=== PATIENT | male | born 1955 | race Caucasian/White ===

== ENCOUNTER 2017-05-02 10:07 | Emergency (ER) | payer MEDICARE, SELFPAY | END 2017-05-02 11:03 | disposition home or self-care (01) | PROVIDERS: Family Provider Emergency Medicine | DX: N41.0 Acute prostatitis (principal); N40.1 Benign prostatic hyperplasia with lower urinary tract symptoms; R35.0 Frequency of micturition; F17.210 Nicotine dependence, cigarettes, uncomplicated; Z86.74 Personal history of sudden cardiac arrest; I25.2 Old myocardial infarction; Z95.5 Presence of coronary angioplasty implant and graft; I82.4Z1 Acute embolism and thrombosis of unspecified deep veins of right distal lower extremity; Z79.01 Long term (current) use of anticoagulants; Z79.899 Other long term (current) drug therapy; Z88.5 Allergy status to narcotic agent; Z88.8 Allergy status to other drugs, medicaments and biological substances; I25.10 Atherosclerotic heart disease of native coronary artery without angina pectoris; I10 Essential (primary) hypertension; E11.9 Type 2 diabetes mellitus without complications | CPT/HCPCS: 81003; 99201 ==

== ENCOUNTER → 2017-05-26 10:00 | Outpatient (CLI) | payer MEDICARE, MEDICAID, SELFPAY ==
--- NOTE | 2017-05-26 10:22 | CT_ITS ---
CT angio abdomen, CLINICAL INDICATION: ITS.REASON: ANEURYSM OF INFRARENAL ABD AORTA ORDERING PHYSICIAN: Jose Nassar MD PATIENT AGE: 61 years COMPARISON: None TECHNIQUE: Axial images obtained with sagittal and coronal reformats. PROCEDURE: Oral Contrast: None IV Contrast: 100 mL [id number]. FINDINGS: ANGIOGRAPHIC FINDINGS: There is diffuse atheromatous changes involving the abdominal aorta and its branch vessels. There is fusiform dilatation of the infrarenal abdominal aorta beginning just below the level the renal arteries and extending to just above the aortic bifurcation. The aorta measures up to 4.3 x 4.3 cm with a moderate amount of intramural thrombus. Previously abdominal aorta measured up to 4 cm AP and 4 cm transverse. Common iliac arteries are not dilated. There are diffuse atheromatous changes of the iliacs with 50% stenosis of the proximal aspect of both common iliacs. No significant renal artery stenosis. Plaque is present at the ostium of the celiac artery without significant stenosis. The SMA is unremarkable. The NATASHA is patent. No evidence of intracranial hemorrhage. Non angiographic findings: There is a small amount of perihepatic fluid. Small amount fluid present in the left paracolic gutter and right paracolic gutter. Gallbladder is distended measuring up to 13 cm in length and 4 cm in width. The common bile duct is prominent measuring up to 14 mm. There is fatty infiltration with atrophy of the pancreas. Multiple surgical clips are present in the epigastric region. There are bilateral renal cysts. Unremarkable adrenal glands. Normal spleen. Postsurgical changes of the intra-abdominal wall. No intestinal obstruction or free air. There is a small amount fluid in the pelvis. There is diverticulosis of the sigmoid colon. No evidence of diverticulitis. Chronic wedge compression changes involving T12 and L1 not significant change from 05/21/2016. IMPRESSION: 1. Fusiform infrarenal abdominal aortic aneurysm 4.3 x 4.3 cm slightly increased in size compared to the previous exam. There is a moderate amount of intramural thrombus. 2. Distended gallbladder and dilated common bile duct. Common bile duct measures up to 13 mm. This has somewhat progressed compared to the previous exam previously measuring 11 mm. There is a small amount of ascites.
[2017-05-26 10:33] LABS: Blood Urea Nitrogen 4 mg/dL (7-18); Creatinine,Serum 0.98 mg/dL (0.70-1.30); Estimated Glomerular Filt Rate 77 ml/min (>60); GFR (African American) 93 ML/MIN (>60)
== END ==
PROVIDERS: Family Provider Emergency Medicine; PCP Emergency Medicine; Visit Provider Emergency Medicine
DX: I71.4 Abdominal aortic aneurysm, without rupture (principal)
CPT/HCPCS: 36415; 74175; 82565; 84520; Q9967

== ENCOUNTER 2017-05-30 10:56 | Emergency (ER) | payer MEDICARE, SELFPAY ==
[2017-05-30 11:20] VITALS: BP 98/58; PULSE 114; RESP 18; TEMP 36.7; O2SAT 98; BMI 22.8
--- NOTE | 2017-05-30 11:37 | HMH.EDUTC ---
[facility] Disposition Clinical Impression: Prostatitis Qualifiers: Prostatitis type: other Qualified Code(s): N41.8 - Other inflammatory diseases of prostate Disposition: Home, Self-Care Condition on Discharge: Good Instructions: DI for Acute Prostatitis Additional Instructions: Start antibiotics and flomax again since that helped last time Keep follow up with urology on 06/06/17 and be sure he knows about the apr and May visits to [facility] Return immediately for new or worsening symptoms Prescriptions: Ciprofloxacin HCl [Ciprofloxacin 500mg Tab] 500 mg PO BID #42 tab Sulfamethoxazole/Trimethoprim [Bactrim DS tablet] 1 each PO BID #42 tablet Tamsulosin HCl [Flomax 0.4mg capsule] 0.4 mg PO DIRECTED #30 cap.er.24h Referrals: Sandor Grier MD [Physician] - (On 06/06/17 as already scheduled) Jose Nassar MD [Primary Care Provider] - (For new or worsening symptoms) Time of Disposition: 12:52 Medical Decision Making Vital Signs: 05/30/17 11:20 Temperature 98.1 F Temperature Source Oral Pulse Rate [Right Brachial] 114 H Respiratory Rate 18 Blood Pressure [Right Arm] 98/58 Blood Pressure Mean [Right Arm] 71 Blood Pressure Source [Right Arm] Automatic Cuff Blood Pressure Position [Right Arm] Sitting 02 Sat by Pulse Oximetry 98 Oxygen Delivery Method Room Air - Lab Data Lab results reviewed: Yes: I reviewed the patient's lab results. Lab Results 05/30/17 11:42: WBC 13.7 H, RBC 4.28 L, Hgb 13.6 L, Hct 43.7, MCV 102.2 H, MCH 31.9 H, MCHC 31.2 L, RDW 16.3, Plt Count 295, MPV 7.7, Neut % (Auto) 78.9, Lymph % (Auto) 11.5, [place] % (Auto) 5.4, Eos % (Auto) 3.1, Baso % (Auto) 1.1, Neut # (Auto) 10.9 H, Lymph # (Auto) 1.6, [place] # (Auto) 0.7, Eos # (Auto) 0.4, Baso # (Auto) 0.2 05/30/17 11:42: Sodium 136, Potassium 5.0, Chloride 104, Carbon Dioxide 26, Anion Gap 11.0, BUN 5 L, Creatinine 0.83, Estimated Creat Clear 73, Estimated GFR 94, Est GFR ( Amer) 113, Glucose 113 H, Calcium 8.4 L, Total Bilirubin 0.8, AST 31, ALT 15, Alkaline Phosphatase 107, Total Protein 6.4, Albumin 2.2 L, Globulin 4.2 H, Albumin/Globulin Ratio 0.5 L 05/30/17 11:55: Urine Color Dark yellow, Urine Appearance Clear, Urine pH 6.0, Ur Specific Kirk 1.020, Urine Protein Negative, Urine Glucose (UA) Negative, Urine Ketones Negative, Urine Blood Negative, Urine Nitrate Negative, Urine Bilirubin Negative, Urine Urobilinogen 0.2, Ur Leukocyte Esterase Negative Result diagrams: 05/30/17 11:42 05/30/17 11:42 - Lyndon Inquiry Pt receiving controlled substance: No [facility] HPI - General Stated complaint: UNABLE TO VOID Time Seen by Provider: 05/30/17 11:30 Mode of Arrival: Ambulatory Source of Information: Patient Limitations: No Limitations Description of Symptoms (Recalled from Triage Doc. by RN): c/o frequent urination and pain while urinating. pt states this has been going on for approx 4 weeks. HEENT Symptoms (Recalled from RN notes): No Resp Symptoms (Recalled from RN notes): No Skin Symptoms (Recalled from RN notes): No MS Symptoms (Recalled from RN notes): No Functional Status (Recalled from RN notes): n/a - History of Present Illness Provider Complaint: c/o dysuria and urinary hesitancy again. Was seen for same symptoms one month ago. PCP is Dr. Nassar but was seen by his PA, Samina, here in [facility] one month ago for same symptoms. Dx prostatitis. Rx Cipro 500mg BID #42, Bactrim BID #42, Flomax 0.4 qHS #[address] Grier. Symptoms much improved on medication but since running out around one week ago, they have gotten worse again. Appt w/ urology in one week on 06/06. Hx of prostate problems . Used to take proscar until previous PCP, Dr. Cervantes, less then one year ago. Elevated PSA in 2012. Pt declines prostate exam today. Doesn't feel like my prostate. That isn't throbbing. Denies fever. - Related Data Previous Rx's Medication Instructions Recorded Ciprofloxacin HCl [Ciprofloxacin 500 mg PO BID #42 tab 05/30/17 500m
[2017-05-30 11:49] LABS: Basophils # 0.2 K/mm3 (0-0.2); Basophils % 1.1 % (0.1-2.0); Eosinophils # 0.4 K/mm3 (0.0-0.4); Eosinophils % 3.1 % (0.1-12.0); Hematocrit 43.7 % (42.0-52.0); Hemoglobin 13.6 g/dL (14.1-18.0); Lymphocytes # 1.6 K/mm3 (0.7-4.5); Lymphocytes % 11.5 K/mm3 (10-50); Mean Corpuscular HGB Conc 31.2 g/dL (31.8-35.4); Mean Corpuscular Hemoglobin 31.9 pg (27.0-31.2); Mean Corpuscular Volume 102.2 fl (80-94); Mean Platelet Volume 7.7 fl (7.4-10.4); Monocytes # 0.7 K/mm3 (0.1-1.0); Monocytes % 5.4 % (1.7-9.3); Neutrophils # 10.9 K/mm3 (1.8-7.8); Neutrophils % 78.9 % (37.0-80.0); Platelet Count 295 K/mm3 (142-424); Red Blood Count 4.28 M/mm3 (4.60-6.20); Red Cell Distribution Width 16.3 % (11.5-17.5); White Blood Count 13.7 K/mm3 (4.8-10.8)
--- NOTE | 2017-05-30 11:54 | PC.NURSE ---
Bladder scan performed. 191ml remaining immediately following urination of 45mL.
[2017-05-30 11:59] LABS: Apearance,Urine Clear (Clear); Blood, Urine Negative (Negative); Color,Urine Dark Yellow (Yellow); Glucose,Urine (UA) Negative (Negative); Ketones,Urine Negative (Negative); Protein,Urine Negative (Negative)
[2017-05-30 12:00] LABS: Bilirubin,Urine Negative (Negative); UTC Leukocyte Esterase,Urine Negative (Negative); UTC Nitrate,Urine Negative (Negative); Urobilinogen,Urine 0.2 EU/dl (0.2)
[2017-05-30 12:06] LABS: Alanine Aminotransferase 15 U/L (12-78); Albumin Level 2.2 gm/dL (3.4-5.0); Albumin/Globulin Ratio 0.5 (1.1-1.8); Alkaline Phosphatase 107 U/L (46-116); Aspartate Amino Transferase 31 U/L (15-37); Bilirubin,Total 0.8 mg/dL (0.2-1.0); Blood Urea Nitrogen 5 mg/dL (7-18); Calcium 8.4 mg/dL (8.5-10.1); Carbon Dioxide 26 mmol/L (21.0-32.0); Chloride 104 mmol/L (98-107); Creatinine Clearance Estimated 73 mL/min (0-300); Creatinine,Serum 0.83 mg/dL (0.70-1.30); Estimated Glomerular Filt Rate 94 ml/min (>60); GFR (African American) 113 ML/MIN (>60); Globulin 4.2 gm/dl (1.3-3.2); Glucose 113 mg/dL (74-106); Sodium 136 mmol/L (136-145); Total Protein,Serum 6.4 gm/dL (6.4-8.2)
[2017-05-30 13:02] VITALS: BP 98/58; PULSE 104; RESP 18; TEMP 36.7; O2SAT 96
== END 2017-05-30 13:08 | disposition home or self-care (01) ==
PROVIDERS: Emergency Provider Nurse Practitioner Family; Family Provider Emergency Medicine; PCP Emergency Medicine
DX: N41.9 Inflammatory disease of prostate, unspecified (principal); I25.10 Atherosclerotic heart disease of native coronary artery without angina pectoris; Z95.5 Presence of coronary angioplasty implant and graft; I25.2 Old myocardial infarction; F17.210 Nicotine dependence, cigarettes, uncomplicated
CPT/HCPCS: 36415; 80053; 81003; 85025; 99202

== ENCOUNTER → 2017-06-18 10:29 | Outpatient (CLI) | payer MEDICARE, MEDICAID, SELFPAY ==
--- NOTE | 2017-06-18 10:32 | US_ITS ---
US gallbladder HISTORY: Distended gallbladder seen on recent CT scan with dilated common bile duct ITS.REASON: Gallbladder distended and dilated common bile duct ORDERING PHYSICIAN: Jose Nassar MD PATIENT AGE: 61 years COMPARISON: None FINDINGS: PANCREAS: Unremarkable. No obvious mass or abnormal fluid collection. No ductal dilatation LIVER: No focal liver lesions demonstrated. Homogeneous echogenicity. No intrahepatic biliary ductal dilatation evident RIGHT KIDNEY: There is a 3 cm right renal cyst. No hydronephrosis. GALLBLADDER: Gallbladder is mildly distended. No stones are evident. Common bile duct measured by ultrasound is unremarkable at 3 mm. IMPRESSION: Mildly distended gallbladder and small right renal cyst otherwise negative right upper quadrant ultrasound
== END ==
PROVIDERS: Family Provider Emergency Medicine; PCP Emergency Medicine; Visit Provider Emergency Medicine
DX: K82.9 Disease of gallbladder, unspecified (principal)
CPT/HCPCS: 76705

== ENCOUNTER 2017-07-01 10:48 | Inpatient (IN) | payer MEDICARE, MEDICAID, SELFPAY ==
[2017-07-01 10:49] VITALS: BMI 21.9
[2017-07-01 10:50] VITALS: BP 102/60; PULSE 106; RESP 18; TEMP 36.8; O2SAT 95; BMI 22.5
--- NOTE | 2017-07-01 11:10 | XR_ITS ---
XR chest portable HISTORY: ITS.REASON: SHORTNESS OF AIR ORDERING PHYSICIAN: Jose Nassar MD PATIENT AGE: 61 years COMPARISON: 04/14/2017 FINDINGS: There is been interval development of diffuse pneumonia in the right lower lobe. Pneumonia is also present in the left lower lobe not quite as opacified as on the right side. Left hemidiaphragm is elevated. There is mild cardiomegaly without failure. Old left clavicular fracture with a bone plate. IMPRESSION: Bilateral pneumonia most extensive in the right lower lobe
--- NOTE | 2017-07-01 11:26 | HMH.EDGENADL ---
ED Disposition Clinical Impression: Acute respiratory failure with hypoxia CAP (community acquired pneumonia) Qualifiers: Laterality: unspecified laterality Qualified Code(s): J18.9 - Pneumonia, unspecified organism Disposition: Still a Patient Condition on Discharge: Fair Referrals: Jose Nassar MD [Primary Care Provider] - - Critical Care Critical Care Time: Yes Attestation: On , the high probability of a clinically significant, sudden or life threatening deterioration of the following system(s) required my full and direct attention, intervention and personal management. The time I documented below is in addition to time spent performing reported procedures but includes the following listed in this critical care notation. Total Critical Care Time: 42 Vital system(s) involved:: Respiratory Failure My critical care processes included: Assessment & monitoring of V/S, Initial and Re-exams, Data Review/Interpretation, Coordinating Care, Medication Orders and management, Documentation Medical Decision Making Vital Signs: 07/01/17 10:50 Temperature 98.3 F Temperature Source Oral Pulse Rate [Right Radial] 106 H Respiratory Rate 18 Blood Pressure [Right Arm] 102/60 Blood Pressure Mean [Right Arm] 74 Blood Pressure Source [Right Arm] Automatic Cuff Blood Pressure Position [Right Arm] Sitting 02 Sat by Pulse Oximetry 95 Oxygen Delivery Method Room Air - Lab Data Lab Results 07/01/17 11:15: WBC 25.2 H*, RBC 3.99 L, Hgb 12.6 L, Hct 38.4 L, MCV 96.3 H, MCH 31.6 H, MCHC 32.8, RDW 16.1, Plt Count 116 L, MPV 9.0, Neut % (Auto) 90.5 H, Lymph % (Auto) 6.4 L, [place] % (Auto) 1.6 L, Eos % (Auto) 1.2, Baso % (Auto) 0.4, Neut # (Auto) 22.8 H, Lymph # (Auto) 1.6, [place] # (Auto) 0.4, Eos # (Auto) 0.3, Baso # (Auto) 0.1, Total Counted 100, Neutrophils % (Manual) 86 H, Lymphocytes % (Manual) 9 L, Monocytes % (Manual) 5, Platelet Estimate Normal, RBC Morphology Normal 07/01/17 11:15: Sodium 136, Potassium 3.7, Chloride 100, Carbon Dioxide 28, Anion Gap 11.7, BUN 14, Creatinine 0.95, Estimated Creat Clear 72, Estimated GFR 80, Est GFR ( Amer) 97, Glucose 100, Calcium 8.2 L, Total Bilirubin 1.0, AST 282 H, ALT 39, Alkaline Phosphatase 126 H, Total Creatine Kinase 5206 H*, CK-MB (CK-2) 3.6, CK-MB (CK-2) Rel Index 0.1, Troponin I 0.05, Total Protein 6.2 L, Albumin 2.1 L, Globulin 4.1 H, Albumin/Globulin Ratio 0.5 L 07/01/17 11:15: B-Natriuretic Peptide 344 H 07/01/17 11:15: Lactic Acid 2.3 H 07/01/17 11:15: Influenza Type A Ag Negative, Influenza Type B Ag Negative 07/01/17 12:14: Specimen Source Right radial, O2 % 31/2 nc, ABG pH 7.49 H, ABG pCO2 33.5 L, ABG pO2 65.5 L, ABG HCO3 25.0, ABG Total CO2 26.0, ABG O2 Saturation 94, ABG Base Excess 1.6, Cruz Test Acceptable Result diagrams: 07/01/17 11:15 07/01/17 11:15 Orders (Tests/Meds): ED MEDICATIONS Generic Name Dose Route Start Last Admin Trade Name Freq PRN Reason Stop Dose Admin Ceftriaxone Sodium 1 gm/ 50 mls @ 100 mls/hr 07/01/17 12:41 07/01/17 13:01 Sodium Chloride IV 07/01/17 13:10 100 mls/hr ONCE ONE Administration Discontinued Medications Generic Name Dose Route Start Last Admin Trade Name Freq PRN Reason Stop Dose Admin Sodium Chloride 1,000 mls @ 999 mls/hr 07/01/17 11:45 07/01/17 11:43 Sod Chlor 0.9% 1000ml Bag IV 07/01/17 12:45 999 mls/hr .Q1H1M ЕЛЕНА Administration Azithromycin 500 mg/ Sodium 250 mls @ 250 mls/hr 07/01/17 12:41 Chloride IV 07/01/17 12:42 ONCE ONE Protocol ORDERS Category Date Time Status XR chest portable Stat Exams 07/01/17 11:10 Taken Blood Culture Stat Micro 07/01/17 11:15 Received - Radiology Data #1 Image(s): Chest X-ray interpreted by Paul Guillermo M.D.: Bibasilar infiltrates, right greater than left. Chronic elevation of left diaphragm. - ECG Data Tracing #1 EKG interpreted by Paul Guillermo MD: Rhythm: sinus Rate: 99 [place]: normal Ectopy:
[2017-07-01 11:27] LABS: Basophils # 0.1 K/mm3 (0-0.2); Basophils % 0.4 % (0.1-2.0); Eosinophils # 0.3 K/mm3 (0.0-0.4); Eosinophils % 1.2 % (0.1-12.0); Hematocrit 38.4 % (42.0-52.0); Hemoglobin 12.6 g/dL (14.1-18.0); Lymphocytes # 1.6 K/mm3 (0.7-4.5); Lymphocytes % 6.4 K/mm3 (10-50); Mean Corpuscular HGB Conc 32.8 g/dL (31.8-35.4); Mean Corpuscular Hemoglobin 31.6 pg (27.0-31.2); Mean Corpuscular Volume 96.3 fl (80-94); Monocytes # 0.4 K/mm3 (0.1-1.0); Monocytes % 1.6 % (1.7-9.3); Neutrophils # 22.8 K/mm3 (1.8-7.8); Neutrophils % 90.5 % (37.0-80.0); Platelet Count 116 K/mm3 (142-424); Red Blood Count 3.99 M/mm3 (4.60-6.20); Red Cell Distribution Width 16.1 % (11.5-17.5); White Blood Count 25.2 K/mm3 (4.8-10.8)
[2017-07-01 11:32] LABS: MANUAL DIFFERENTIAL MANUAL DIFFERENTIAL (MANUAL DIFF)
[2017-07-01 11:44] LABS: Lactic Acid 2.3 mmol/L (0.4-2.0)
[2017-07-01 11:52] LABS: Alanine Aminotransferase 39 U/L (12-78); Albumin Level 2.1 gm/dL (3.4-5.0); Albumin/Globulin Ratio 0.5 (1.1-1.8); Alkaline Phosphatase 126 U/L (46-116); Blood Urea Nitrogen 14 mg/dL (7-18); Calcium 8.2 mg/dL (8.5-10.1); Carbon Dioxide 28 mmol/L (21.0-32.0); Chloride 100 mmol/L (98-107); Creatine Kinase MB 3.6 mg/ml (0.0-3.6); Creatinine Clearance Estimated 72 mL/min (0-300); Creatinine,Serum 0.95 mg/dL (0.70-1.30); Estimated Glomerular Filt Rate 80 ml/min (>60); GFR (African American) 97 ML/MIN (>60); Globulin 4.1 gm/dl (1.3-3.2); Glucose 100 mg/dL (74-106); Sodium 136 mmol/L (136-145); Total Protein,Serum 6.2 gm/dL (6.4-8.2); Troponin I 0.05 ng/ml (0.00-0.06)
[2017-07-01 12:03] LABS: Anion Gap 11.7 mEq/L (5-15)
[2017-07-01 12:09] LABS: ABG Base Excess 1.6 mmol/L (-2.4-2.3); ABG Oxygen Saturation 94 % (90-100); ABG PCO2 33.5 mmhg (35.0-45.0); ABG PH 7.49 mmol/L (7.35-7.45); ABG PO2 65.5 mmhg (80-100)
[2017-07-01 12:12] LABS: CKMB Relative Index 0.1 U/L (0-4.0); Creatine Kinase 5206 U/L (39-308); Potassium 3.7 mmoL/L (3.5-5.1)
[2017-07-01 12:14] LABS: Allen's Test Acceptable; Source Right Radial
[2017-07-01 12:15] LABS: Aspartate Amino Transferase 282 U/L (15-37); Lymphocytes % 9 % (10-50); Monocytes % 5 % (2-9); Neutrophils % 86 % (42-76); Platelet Estimate Normal; RBC Morphology Normal; Total Cells Counted 100
[2017-07-01 13:43] VITALS: BP 140/68; PULSE 85; RESP 18; TEMP 36.8; O2SAT 99
[2017-07-01 14:38] VITALS: BP 105/55; PULSE 90; RESP 20; TEMP 36.9; O2SAT 96; BMI 20.9
[2017-07-01 15:21] LABS: Reflex Lactic Add Lactic Reflex
[2017-07-01 15:51] VITALS: BP 112/63; PULSE 91; RESP 20; TEMP 36.8; O2SAT 93
--- NOTE | 2017-07-01 17:05 | SW/DCPLANNER ---
Engaged in conversation this evening regarding patients mental status. Patient stated that for the past week he has became very confused at home. Patient openly admitted that his last time drinking alcohol was during the superbowl and stated he consumed two bottles of wine. Patient has also stated that he has not been taking his medication like he is suppose to...sometimes he forgets and sometimes the pills are too small for him to see. I had a conversation with patient about purchasing a daily medicine organizer. I asked patient if he had any suicidal thoughts this evening and he stated that he did not that he has just been confused this week. I will continue to follow up with this patient daily during his stay.
[2017-07-01 19:16] VITALS: PULSE 95; PULSE 96
[2017-07-01 20:00] VITALS: BP 107/60; PULSE 100; RESP 24; TEMP 37.6; O2SAT 91
[2017-07-02] VITALS (9 sets, daily range): BP systolic 96–122; BP diastolic 55–62; PULSE 94–119; RESP 18–35; TEMP 36.7–38.1; O2SAT 90–96
--- NOTE | 2017-07-02 05:21 | PC.NURSE ---
Pt can be difficult to care for in understanding exactly what his needs are. Speech is somewhat rambling at times with several explanations given concerning POC - ABX - Breathing Tx and ongoing care. Pt voiced he can not understand why he is so short of air and does become anxious when talking about his soa. Encouraged pt on several occasions with relaxation techniques and diversion to keep pt breathing through his nose to receive benefits of oxygen and slowing breathing down to prevent hyperventilation. Pt voiced he hasn't been eating well and has not ask for anything to eat this shift. Discussed drinking to keep secretions thinned and pt has been coughing and spitting in emesis basin. Pt requested a catheter earlier as he felt he was getting too short of air trying to use the urinal. Discussed not having an order for a catheter and the desire for him to use the urinal versus insertion of a catheter and the risk for possible infection. He has been using the urinal successfully following that conversation. Pt's call light remains w/i pt's reach and he does ring out when he needs help with pt remaining safe this shift.
--- NOTE | 2017-07-02 05:56 | PC.NURSE ---
In to talk with patient concerning upcoming doctor's round. Discussed earlier with pt about his anxiety. Pt voiced he had been depressed lately, when questioned why pt voiced he has always been that way just been pushing through until he can't any more. No s/s of self harm and patient discussed he needed something for his nerves. Voiced he hasn't been eating well and haven't eaten much of nothing lately, weighed 180 pounds about a year ago and now weighs about 140. Voiced he stays about half sick at my stomach all the time. Encouraged pt to talk with MD or whoever is rounding this am about his anxiety and decreased appetite. I will pass along in shift report to oncoming nurse as well. Pt resting in bed at this time watching the Maestro on TV, appears to be more relaxed than in earlier shift. Patient not found sleeping on any checks this shift. He has a twitch about his lips constantly and appears to get frustrated during discussions concerning his health as he will rub the top of his head back and forth. Will continue monitoring.
[2017-07-02 06:47] LABS: Basophils % 0.1 % (0.1-2.0); Eosinophils # 0.1 K/mm3 (0.0-0.4); Eosinophils % 0.6 % (0.1-12.0); Lymphocytes # 1.1 K/mm3 (0.7-4.5); Mean Corpuscular HGB Conc 33.6 g/dL (31.8-35.4); Mean Corpuscular Hemoglobin 31.8 pg (27.0-31.2); Mean Corpuscular Volume 94.6 fl (80-94); Mean Platelet Volume 8.4 fl (7.4-10.4); Monocytes # 0.3 K/mm3 (0.1-1.0); Monocytes % 1.9 % (1.7-9.3); Neutrophils # 16.5 K/mm3 (1.8-7.8); Neutrophils % 91.5 % (37.0-80.0); Platelet Count 96 K/mm3 (142-424); Red Blood Count 3.09 M/mm3 (4.60-6.20); Red Cell Distribution Width 16.4 % (11.5-17.5); White Blood Count 18.1 K/mm3 (4.8-10.8)
[2017-07-02 06:59] LABS: Anion Gap 8.7 mEq/L (5-15); Blood Urea Nitrogen 11 mg/dL (7-18); Carbon Dioxide 26 mmol/L (21.0-32.0); Chloride 102 mmol/L (98-107); Creatinine Clearance Estimated 67 mL/min (0-300); Creatinine,Serum 0.58 mg/dL (0.70-1.30); Estimated Glomerular Filt Rate 142 ml/min (>60); GFR (African American) 171 ML/MIN (>60); Glucose 94 mg/dL (74-106); Potassium 3.7 mmoL/L (3.5-5.1); Sodium 133 mmol/L (136-145)
[2017-07-02 07:01] LABS: Creatine Kinase 1090 U/L (39-308)
[2017-07-02 07:06] LABS: Hemoglobin 9.8 g/dL (14.1-18.0)
[2017-07-02 07:07] LABS: MANUAL DIFFERENTIAL MANUAL DIFFERENTIAL (MANUAL DIFF)
--- NOTE | 2017-07-02 08:00 | HMH.PHAVTE ---
[facility] Pharmacy VTE Monitoring - Patient Demographics Admission date: 07/01/17 Report Date: 07/02/17 Time: 08:00 Allergies/Adverse Reactions: Patient Allergies duloxetine [From CYMBALTA] Allergy (Intermediate, Verified 07/01/17 10:59) MOOD CHANGES phenytoin [From DILANTIN] Allergy (Intermediate, Verified 07/01/17 10:59) I-RASH methadone [METHADONE] Allergy (Unknown, Verified 07/01/17 10:59) Height: 1.73 m Weight: 62.6 kg Patient Problems: Current Active Problems CAP (community acquired pneumonia) (Acute) Acute respiratory failure with hypoxia (Acute) - VTE Risk Labs: VTE Related Lab Results Hgb 9.8 g/dL (14.1-18.0) L D 07/02/17 06:10 Hct 29.0 % (42.0-52.0) L 07/02/17 06:10 Plt Count 96 K/mm3 (142-424) L 07/02/17 06:10 BUN 11 mg/dL (7-18) 07/02/17 06:10 Creatinine 0.58 mg/dL (0.70-1.30) L D 07/02/17 06:10 Estimated Creat Clear 67 mL/min (0-300) 07/02/17 06:10 Was VTE Risk Assessment Performed: Yes VTE Score: 3 VTE Risk Level: Low Risk - Prophylaxis VTE Prophylaxis Ordered?: Yes Types of VTE Prophylaxis: TEDS Thigh High, Pharmacological Location of Applied Device: Bilateral Lower Extremeties Pharmacologic Type: Other (XARELTO) - VTE Diagnosis Confirmed Treatment or plan recommended: Continue Current Treatment
--- NOTE | 2017-07-02 09:27 | HMH.HP ---
*Admission Date: 07/01/17 *Chief complaint: sob *History of present illness: 61 yr old male presents for sob and and weakness for 7 days. Pt states confusion has increased over the last 4 days. has only drank 2 beers last week. Admitted for low o2 sat, pneumonia. discussed with pt the possiablity of rehab after dc. [facility] History I have reviewed the patient's past medical history: Yes Medical History: Reports:: Migraine, Pulmonary Embolism, Seizures Denies:: Cancer, Diabetes Mellitus Type 1, Diabetes Mellitus Type 2, Hypertension, Internal Pacemaker, MRSA Other Medical History: Reports: Chemotherapy Laterality Cases: Left: Total Knee Replacement Other Surgeries: Yes: Other. No: Pacemaker Amputation: No Fractures: No - *Social History Educational Level: Completed High School Smoking Status: Current every day smoker Tobacco Type: cigarettes # Packs/Day (cigarettes): 1 Alcohol Intake: current Alcohol Intake Frequency:: a few times a week Occupational Status: disabled Housing: house Household Members: none - Psychiatric History Expresses thoughts of harming self/others: Vague Suicide Plan Description: Vague *Family Hx:: Kidney Disease, Diabetes, Heart Attack Review of Systems - Review of Systems Review of systems:: unable to obtain - Constitutional Reports fatigue - Eyes Denies change in vision - ENT Denies change in voice - *Cardiovascular Reports shortness of breath, Reports shortness of breath when lying down - *Respiratory Reports change in phlegm color, Reports chest congestion, Reports cough, Reports shortness of breath, Reports shortness of breath with activity - *Gastrointestinal Denies constipation - *Genitourinary Denies difficulty urinating - *Musculoskeletal Reports body aches - Integumentary/Breasts Denies rash - *Neurologic Denies localized weakness - Psychiatric Denies irritability - Endocrine Denies increased thirst - Hematologic/Lymphatic Denies enlarged lymph nodes - Allergic/Immunologic Denies tongue swelling Meds Home Medications Medication Instructions Recorded Confirmed Type oxycodone 10 mg tablet 10 mg PO Q6H tab 06/03/17 07/01/17 History Sulfamethoxazole/Trimethoprim 1 each PO BID 07/01/17 07/01/17 History [Bactrim DS tablet] Tamsulosin HCl [Flomax 0.4mg 0.4 mg PO DAILY 07/01/17 07/02/17 History capsule] Cyclobenzaprine HCl 10 mg PO TID 07/02/17 07/02/17 History [Cyclobenzaprine 10mg Tab] Methocarbamol [Methocarbamol 750mg 750 mg PO TID 07/02/17 07/02/17 History Tab] Pregabalin [Pregabalin 50mg 50 mg PO BID 07/02/17 07/02/17 History Capsule] Rivaroxaban [Xarelto 15mg tablet] 15 mg PO DAILY 07/02/17 07/02/17 History Allergies Allergy/AdvReac Type Severity Reaction Status Date / Time duloxetine [From CYMBALTA] Allergy Intermediate MOOD Verified 07/01/17 10:59 CHANGES phenytoin [From DILANTIN] Allergy Intermediate I-RASH Verified 07/01/17 10:59 methadone [METHADONE] Allergy Unknown Verified 07/01/17 10:59 Exam Vital signs and Labs for Last 24 Hours: Temp Pulse Resp BP Pulse Ox 98.5 F 102 H 20 96/58 93 L 07/02/17 07:33 07/02/17 07:33 07/02/17 07:33 07/02/17 07:33 07/02/17 07:33 Laboratory Results - last 24 hr 07/01/17 15:30: Lactic Acid Fup @ 4Hr 2.0 07/02/17 06:10: Total Creatine Kinase 1090 H* D 07/02/17 06:10: WBC 18.1 H D, RBC 3.09 L, Hgb 9.8 L D, Hct 29.0 L, MCV 94.6 H, MCH 31.8 H, MCHC 33.6, RDW 16.4, Plt Count 96 L, MPV 8.4, Neut % (Auto) 91.5 H, Lymph % (Auto) 6.0 L, [place] % (Auto) 1.9, Eos % (Auto) 0.6, Baso % (Auto) 0.1, Neut # (Auto) 16.5 H, Lymph # (Auto) 1.1, [place] # (Auto) 0.3, Eos # (Auto) 0.1, Baso # (Auto) 0.0 07/02/17 06:10: Sodium 133 L, Potassium 3.7, Chloride 102, Carbon Dioxide 26, Anion Gap 8.7, BUN 11, Creatinine 0.58 L D, Estimated Creat Clear 67, Estimated GFR 142, Est GFR ( Amer) 171 D, Glucose 94 I & O for Last 24 hours: Intake & Output 06/29/17 06/30/17
[2017-07-02 11:45] LABS: Lymphocytes % 8 % (10-50); Neutrophils % 92 % (42-76); Platelet Estimate Marked Decrease; RBC Morphology Normal; Total Cells Counted 100
[2017-07-02 23:49] LABS: ABG Oxygen Saturation 90 % (90-100); ABG PCO2 32.4 mmhg (35.0-45.0); ABG PH 7.45 mmol/L (7.35-7.45); ABG PO2 56.4 mmhg (80-100)
[2017-07-02 23:51] LABS: Allen's Test Patient Unable; Oxygen 50% VENI MASK %; Source Left Radial
[2017-07-03] VITALS (28 sets, daily range): BP systolic 64–148; BP diastolic 34–81; PULSE 68–119; RESP 16–51; TEMP 36.7–37.2; O2SAT 78–100
--- NOTE | 2017-07-03 00:26 | PC.NURSE ---
Contacted Dr Kristian cedeño pt's CIWA score as evaluated by Linh Black RN as being 33. Orders to start the Drug/Alcohol Withdrawal Protocol. Cancel Ativan. Serax 30 MG every 6 hours and hang a rally pack.
--- NOTE | 2017-07-03 00:38 | PC.NURSE ---
Upon entering room patient's nurse at bedside. Patient is anxious, pulling at gown, and removing venti mask, gasping for air and trying to stand, and pulling at boggs catheter. This nurse and 3 other nurses in room trying to calm patient. Paged Dr. Nassar at that time and a messaged was left. Spoke with Deanna in the Er asking for her to send Dr Nassar up to see patient when he arrived to the facility. Heart rate in the 120's RR: 28 O2 with 50% venti at 90%. Staff continued at bedside until Dr. Nassar arrived and assessed the patient. New orders were rec'd and verified by Clair Chahal Rn. supervisor engines road also at bedside at this time.
--- NOTE | 2017-07-03 00:54 | PC.NURSE ---
Remained at pt's bs from 2129 to 29 to ensure pt's safety. Pt gradually became more confused, pulling at mask not wanting to leave mask on, pulling at catheter. Use of distraction and relaxation techniques used. Dimmed lights, turned off tv to decrease stimulation. Gave pt many sips of water to moisten mouth and meet pt's needs. Pt's speech jumping from subject to subject with my reinforcement to leave mask on as he kept trying to take it off. Asked charge nurse Linh Black to watch pt at 29 to I could take a break, also phoned housekeeper manager Ting Holloway Rn to come to pt's room, she had not arrived when I left to take my break. Upon returning to room, found pt to be even more confused and trying to get oob. 2 other RN's and a tech in the room. Please see Linh Black's note for further evaluation of the patient.
--- NOTE | 2017-07-03 01:29 | PC.NURSE ---
Rescoring of CIWA - pt now a 22 not 33. Pt now appears as he did prior to my break with the exception of getting on the bsc to attempt to have a bm. Java Tech Lead Ting Holloway Rn with 2 techs are assisting pt. Rally pack is infusing and serax given. Will continue monitoring for any further withdrawal symptoms.
[2017-07-03 03:00] LABS: Microscopic, Urine URINE MICROSCOPIC (MICROSCOPIC)
[2017-07-03 03:04] LABS: Appearance,Urine CLEAR (Clear); Blood, Urine 2+ (Negative); Color,Urine YELLOW (Yellow); Glucose,Urine (UA) Negative (Negative); Ketones,Urine 1+ (Negative); Leukocyte Esterase,Urine Negative (Negative); Nitrate,Urine Negative (Negative); Protein,Urine 1+ (Negative)
[2017-07-03 03:07] LABS: Bilirubin,Urine Negative (Negative)
[2017-07-03 03:25] LABS: Bacteria,Urine 1+ /lpf; Mucus,Urine 2+ /lpf
--- NOTE | 2017-07-03 04:19 | PC.NURSE ---
Pt oxygen at 025LNC - addded humidification for additional comfort r/t drying. Saturation reading 83. Pt will not leave mask on and irritates him as he takes it on and off. Leaving nasal cannula in with consistent readings in 80's but oxygen supply is consistent. More relaxed with less fidgeting but still occasionally plays with covers, has stopped pulling at boggs cath and not offered to bother new iv positioned in right forearm #20 as both previous IV's had infiltrated with right antecubital with no edema and left antecubital with still slight edema noted. Pt resting with staff encouragement when pt arouses. No history found in H & P, pt reported drinking a couple beers, see report. Unknown when patient's last drink actually was. Most recent CIWA score was 6, gave serax 30MG po per order. Pt has drifted in and out of sleep, however when awakens becomes anxious and begins to fidget again. Recheck of current oxygenation 86% heart rate 103, pt resting quietly at this time.
--- NOTE | 2017-07-03 04:58 | PC.NURSE ---
NURSE KNOWS ABOUT O2 BEING 83
[2017-07-03 06:37] LABS: White Blood Count 20.7 K/mm3 (4.8-10.8)
[2017-07-03 06:38] LABS: Hematocrit 30.6 % (42.0-52.0); Mean Corpuscular HGB Conc 32.7 g/dL (31.8-35.4); Mean Corpuscular Hemoglobin 31.7 pg (27.0-31.2); Mean Corpuscular Volume 96.9 fl (80-94); Mean Platelet Volume 9.7 fl (7.4-10.4); Platelet Count 79 K/mm3 (142-424); Red Blood Count 3.15 M/mm3 (4.60-6.20); Red Cell Distribution Width 16.3 % (11.5-17.5)
[2017-07-03 06:39] LABS: Basophils % 0.1 % (0.1-2.0); Eosinophils # 0.3 K/mm3 (0.0-0.4); Eosinophils % 1.6 % (0.1-12.0); Lymphocytes # 0.8 K/mm3 (0.7-4.5); Lymphocytes % 4.7 K/mm3 (10-50); Monocytes % 4.7 % (1.7-9.3); Neutrophils # 18.4 K/mm3 (1.8-7.8); Neutrophils % 88.9 % (37.0-80.0)
[2017-07-03 06:41] LABS: MANUAL DIFFERENTIAL MANUAL DIFFERENTIAL (MANUAL DIFF)
--- NOTE | 2017-07-03 07:02 | PC.NURSE ---
Staff remained in pt's room for close observation, either tech Alexandra Vega and/or myself. Pt appears sleepy and is more cooperative with care, less pulling at boggs catheter and IV tubing. Pt allows staff to provide care with little resistance. Pt remained safe this shift.
[2017-07-03 07:44] LABS: Alanine Aminotransferase 31 U/L (12-78); Albumin Level 1.6 gm/dL (3.4-5.0); Albumin/Globulin Ratio 0.4 (1.1-1.8); Alkaline Phosphatase 96 U/L (46-116); Aspartate Amino Transferase 117 U/L (15-37); Bilirubin,Total 0.5 mg/dL (0.2-1.0); Blood Urea Nitrogen 12 mg/dL (7-18); Calcium 7.6 mg/dL (8.5-10.1); Carbon Dioxide 25 mmol/L (21.0-32.0); Chloride 101 mmol/L (98-107); Creatinine Clearance Estimated 67 mL/min (0-300); Creatinine,Serum 0.67 mg/dL (0.70-1.30); Estimated Glomerular Filt Rate 120 ml/min (>60); GFR (African American) 145 ML/MIN (>60); Globulin 3.6 gm/dl (1.3-3.2); Glucose 89 mg/dL (74-106); Sodium 135 mmol/L (136-145); Total Protein,Serum 5.2 gm/dL (6.4-8.2)
[2017-07-03 08:58] LABS: Lymphocytes % 5 % (10-50); Monocytes % 3 % (2-9); Neutrophils % 92 % (42-76); Total Cells Counted 100
[2017-07-03 09:00] LABS: Hypochromasia 1+
[2017-07-03 09:01] LABS: Platelet Estimate Slight Dec
--- NOTE | 2017-07-03 09:01 | HMH.ACPN2 ---
Internal Medicine - PN: Subj *Date: 07/03/17 *Time: 09:01 Exam Vital signs and Labs for Last 24 Hours: Temp Pulse Resp BP Pulse Ox 99.0 F 69 22 133/46 84 L 07/03/17 04:00 07/03/17 06:40 07/03/17 04:00 07/03/17 04:00 07/03/17 06:40 Laboratory Results - last 24 hr 07/02/17 06:10: Total Counted 100, Neutrophils % (Manual) 92 H, Lymphocytes % (Manual) 8 L, Platelet Estimate Marked decrease, RBC Morphology Normal 07/02/17 23:45: Specimen Source Left radial, O2 % 50% jeanna mask, ABG pH 7.45, ABG pCO2 32.4 L, ABG pO2 56.4 L, ABG HCO3 22.0, ABG Total CO2 23.0, ABG O2 Saturation 90, ABG Base Excess -2.0, Cruz Test Patient unable 07/03/17 00:00: Urine Color Yellow, Urine Appearance Clear, Urine pH 7.0, Ur Specific [place] 1.020, Urine Protein 1+, Urine Glucose (UA) Negative, Urine Ketones 1+, Urine Blood 2+, Urine Nitrate Negative, Urine Bilirubin Negative, Urine Urobilinogen 1.0, Ur Leukocyte Esterase Negative, Urine RBC 3-5, Urine WBC 3-5, Urine Bacteria 1+, Urine Mucus 2+ 07/03/17 06:24: WBC 20.7 H*, RBC 3.15 L, Hgb 10.0 L, Hct 30.6 L, MCV 96.9 H, MCH 31.7 H, MCHC 32.7, RDW 16.3, Plt Count 79 L, MPV 9.7, Neut % (Auto) 88.9 H, Lymph % (Auto) 4.7 L, [place] % (Auto) 4.7, Eos % (Auto) 1.6, Baso % (Auto) 0.1, Neut # (Auto) 18.4 H, Lymph # (Auto) 0.8, Grant # (Auto) 1.0, Eos # (Auto) 0.3, Baso # (Auto) 0.0 07/03/17 07:20: Sodium 135 L, Potassium 4.0, Chloride 101, Carbon Dioxide 25, Anion Gap 13.0, BUN 12, Creatinine 0.67 L, Estimated Creat Clear 67, Estimated GFR 120, Est GFR ( Amer) 145, Glucose 89, Calcium 7.6 L, Total Bilirubin 0.5, AST 117 H D, ALT 31, Alkaline Phosphatase 96, Total Protein 5.2 L, Albumin 1.6 L, Globulin 3.6 H, Albumin/Globulin Ratio 0.4 L I & O for Last 24 hours: Intake & Output 06/30/17 07/01/17 07/02/17 07/03/17 11:59 11:59 11:59 11:59 Intake Total 240 / 240 260 / 260 Output Total 1125 / 1125 Balance -885 / -885 260 / 260 Weight 138 lb 0.15 oz - Constitutional thin, chronically ill appearing - *Routine HEENT Exam Head: Present: normocephalic Eye: Present: PERRL ENT: Present: mucous membranes moist - *Routine Neck Exam Present: supple, full ROM - *Routine Respiratory Exam Present: decreased breath sounds, rhonchi, wheezes, diminished air movement - *Routine Cardiovascular Exam Present: RRR - *Routine Abdominal Exam Present: soft, normoactive bowel sounds - *Routine Extremities Exam Present: full ROM - *Routine Skin Exam Present: intact - *Routine Neurological Exam Present: alert, oriented X3, CN II-XII intact - Routine Psychiatric Exam Present: anxious, agitated Assessment and Plan - Assessment and plan all Dx Assessment and Plan for all problems:: contiune antibotics
--- NOTE | 2017-07-03 11:36 | XR_ITS ---
XR chest portable HISTORY: Elevated white blood cell count, pneumonia ITS.REASON: WBC up ORDERING PHYSICIAN: Jose Nassar MD PATIENT AGE: 61 years COMPARISON: 07/01/2017 FINDINGS: Right upper right lower lobe pneumonia once again noted which appears worse especially in the right upper lobe. Left lower lobe pneumonia also noted slightly worse. Cardiomegaly without failure. Bone plate is present with the left clavicle as before. No obvious effusions IMPRESSION: Worsening bilateral pneumonia.
--- NOTE | 2017-07-03 14:32 | HMH.PHACONS ---
- Pharmacy Consult Date: 07/03/17 Time: 14:32 Referring provider: DR. CADET Reason for Consult:: VANCOMYCIN TROUGH LEVEL Allergies and ADEs:: Allergies Allergy/AdvReac Type Severity Reaction Status Date / Time duloxetine [From CYMBALTA] Allergy Intermediate MOOD Verified 07/01/17 10:59 CHANGES phenytoin [From DILANTIN] Allergy Intermediate I-RASH Verified 07/01/17 10:59 methadone [METHADONE] Allergy Unknown Verified 07/01/17 10:59 Home Medications:: Home Medications Medication Instructions Recorded Confirmed Type oxycodone 10 mg tablet 10 mg PO Q6H tab 06/03/17 07/01/17 History Sulfamethoxazole/Trimethoprim 1 each PO BID 07/01/17 07/01/17 History [Bactrim DS tablet] Tamsulosin HCl [Flomax 0.4mg 0.4 mg PO DAILY 07/01/17 07/02/17 History capsule] Cyclobenzaprine HCl 10 mg PO TID 07/02/17 07/02/17 History [Cyclobenzaprine 10mg Tab] Methocarbamol [Methocarbamol 750mg 750 mg PO TID 07/02/17 07/02/17 History Tab] Pregabalin [Pregabalin 50mg 50 mg PO BID 07/02/17 07/02/17 History Capsule] Rivaroxaban [Xarelto 15mg tablet] 15 mg PO DAILY 07/02/17 07/02/17 History Height: 1.73 m Weight: 62.6 kg Laboratory Results:: Laboratory Results - last 24 hr 07/02/17 23:45: Specimen Source Left radial, O2 % 50% jeanna mask, ABG pH 7.45, ABG pCO2 32.4 L, ABG pO2 56.4 L, ABG HCO3 22.0, ABG Total CO2 23.0, ABG O2 Saturation 90, ABG Base Excess -2.0, Cruz Test Patient unable 07/03/17 00:00: Urine Color Yellow, Urine Appearance Clear, Urine pH 7.0, Ur Specific [place] 1.020, Urine Protein 1+, Urine Glucose (UA) Negative, Urine Ketones 1+, Urine Blood 2+, Urine Nitrate Negative, Urine Bilirubin Negative, Urine Urobilinogen 1.0, Ur Leukocyte Esterase Negative, Urine RBC 3-5, Urine WBC 3-5, Urine Bacteria 1+, Urine Mucus 2+ 07/03/17 06:24: WBC 20.7 H*, RBC 3.15 L, Hgb 10.0 L, Hct 30.6 L, MCV 96.9 H, MCH 31.7 H, MCHC 32.7, RDW 16.3, Plt Count 79 L, MPV 9.7, Neut % (Auto) 88.9 H, Lymph % (Auto) 4.7 L, [place] % (Auto) 4.7, Eos % (Auto) 1.6, Baso % (Auto) 0.1, Neut # (Auto) 18.4 H, Lymph # (Auto) 0.8, [place] # (Auto) 1.0, Eos # (Auto) 0.3, Baso # (Auto) 0.0, Total Counted 100, Neutrophils % (Manual) 92 H, Lymphocytes % (Manual) 5 L, Monocytes % (Manual) 3, Platelet Estimate Slight dec, Hypochromasia 1+ 07/03/17 07:20: Sodium 135 L, Potassium 4.0, Chloride 101, Carbon Dioxide 25, Anion Gap 13.0, BUN 12, Creatinine 0.67 L, Estimated Creat Clear 67, Estimated GFR 120, Est GFR ( Amer) 145, Glucose 89, Calcium 7.6 L, Total Bilirubin 0.5, AST 117 H D, ALT 31, Alkaline Phosphatase 96, Total Protein 5.2 L, Albumin 1.6 L, Globulin 3.6 H, Albumin/Globulin Ratio 0.4 L Medical History: Reports:: Migraine, Pulmonary Embolism, Seizures Denies:: Cancer, Diabetes Mellitus Type 1, Diabetes Mellitus Type 2, Hypertension, Internal Pacemaker, MRSA Assessment and Plan (1) CAP (community acquired pneumonia) Current visit: Yes Status: Acute Qualifiers: Laterality: unspecified laterality Qualified Code(s): J18.9 - Pneumonia, unspecified organism Category: Medical Code(s): J18.9 - Pneumonia, unspecified organism - Assessment and plan all Dx Assessment and Plan for all problems:: BASED ON PATIENT FACTORS, RECOMMEND VANCOMYCIN 1250 MG IV Q12H FOR WORSENING PNEUMONIA. PHARMACY WILL FOLLOW DAILY AND ADJUST APPROPRIATE.
[2017-07-03 15:50] LABS: ABG Base Excess -9.3 mmol/L (-2.4-2.3); ABG HCO3 17.3 mmhg (22.0-26.0); ABG Oxygen Saturation 70 % (90-100); ABG PCO2 36.7 mmhg (35.0-45.0); ABG PH 7.29 mmol/L (7.35-7.45); ABG TCO2 18.4 mmhg (23-27)
[2017-07-03 16:08] LABS: CKMB Relative Index 0.3 U/L (0-4.0); Creatine Kinase 962 U/L (39-308); Creatine Kinase MB 2.6 mg/ml (0.0-3.6); Troponin I 0.21 ng/ml (0.00-0.06)
--- NOTE | 2017-07-03 16:14 | XR_ITS ---
XR chest portable 1608 hours HISTORY: ITS.REASON: line placement ORDERING PHYSICIAN: Jose Nassar MD PATIENT AGE: 61 years COMPARISON: None available FINDINGS: Endotracheal tube has been inserted. The tip is in good position 5 cm above the donell at the T3-T4 level. There is diffuse bilateral pneumonia greater on the right side compared to the left is not significantly changed. There is some sparing of the cysts CP angles of the lungs bilaterally. There is mild cardiomegaly. No obvious effusions. IMPRESSION: Good positioning of the endotracheal tube. Diffuse bilateral pneumonia
[2017-07-03 16:22] LABS: Allen's Test Patient Unable; Oxygen 100% %; Source Left Femoral
--- NOTE | 2017-07-03 16:36 | PC.NURSE ---
1515- DURING REASSESSMENT, UNABLE TO AROUSE PATIENT. VITALS: BP 148/48, RR 50, O2 SAT 100%, HR 105. 1520-DOMENICO VALLE APRN NOTIFIED OF CHANGE IN PATIENT'S CONDITION, ORDERED EKG, ABG AND CARDIAC ENZYMES. 1523- RAPID RESPONSE CALLED. 1525- FSBS 77, BP 70/32 RIGHT ARM MANUALLY, RR 42, O2 SAT 100% 1527-RAPID RESPONSE RED CALLED. 1529-DR. OROZCO ARRIVED, ORDERED 2L NS BOLUS IV 1529-ABGS ORDERED/OBTAINED. 1530-DR. OROZCO ORDERED CENTRAL LINE AND TO START LEVAPHED DRIP 1531-LEVAPHED DRIP 4ML/HR IV STARTED, SEE MAR FOR TITRATION. 1532- 20 RIGHT EJ PLACED. 1533- BLOOD DRAWN FOR LABS. 1535- DR OROZCO STARTED CENTRAL LINE IN RIGHT FEMORAL, COMPLETED AT 1540. 1541-INITIATED MANUAL VENTILATION 1537-BP 74/35. 1544-BP 79/48. 1545-2ND ABG OBTAINED, BP 68/43, NON- RE-BREATHER PLACED ON PT. 1554- BP 79/50. 1555-3RD ABG ORDERED/OBTAINED. DR. CADET ORDERED INTUBATION AND TRANSFER TO ICU. 1600- BP 92/55, SUCTION SET UP, PROPOFOL 50 MCG IV DRIP STARTED, SEE MAR FOR TITRATION. 1602- ATTEMPTED INTUBATION, PT COMBATIVE. 1603- ATTEMPTED INTUBATION, PT COMBATIVE. 1605- PT INTUBATION COMPLETED, LENGTH 22 CM AT THE TEETH. 1604-BP 83/54, MANUAL VENTILATION 1607-119/64, CHEST XRAY ORDERED. 1611-BP 85/54. 1615-VENITLATOR STARTED, FOLLOW UP ABG ORDERED FOR 1645.
[2017-07-03 16:55] LABS: ABG Base Excess -6.9 mmol/L (-2.4-2.3); ABG HCO3 19.2 mmhg (22.0-26.0); ABG Oxygen Saturation 99 % (90-100); ABG PCO2 38.2 mmhg (35.0-45.0); ABG PH 7.32 mmol/L (7.35-7.45); ABG PO2 225.9 mmhg (80-100); ABG TCO2 20.4 mmhg (23-27); Allen's Test ACCEPTABLE; Oxygen 100 %; PEEP 5; Source L RADIAL; Tidal Volume 450; Vent Rate 16
--- NOTE | 2017-07-03 16:55 | HMH.DCSUM ---
General - General Admission date: 07/01/17 Discharge date: 07/03/17 HPI HPI: 61 yr old male presents for sob and and weakness for 7 days. Pt states confusion has increased over the last 4 days. has only drank 2 beers last week. Admitted for low o2 sat, pneumonia. discussed with pt the possiablity of rehab after dc. Objective Vital signs: Temp Pulse Resp BP Pulse Ox 98.8 F 88 22 115/62 100 07/03/17 11:37 07/03/17 11:37 07/03/17 11:37 07/03/17 11:37 07/03/17 16:28 severe distress - *Routine HEENT Exam Head: Present: normocephalic Eye: Present: PERRL ENT: Present: mucous membranes moist - *Routine Neck Exam Present: supple, full ROM - *Routine Respiratory Exam Present: decreased breath sounds, diminished air movement Comments: intubated - *Routine Cardiovascular Exam Present: RRR - *Routine Abdominal Exam Present: soft, normoactive bowel sounds - *Routine Extremities Exam Present: normal capillary refill - *Routine Skin Exam Present: intact - *Routine Neurological Exam intubated Hospital Course Hospital Course: chest x ray:IMPRESSION: Good positioning of the endotracheal tube. Diffuse bilateral pneumonia pt became restless and resp rate increased to 50 times a min and bp droppped 75/32, rapid response called and levafed drip started. blood gas 7.29, 36,42 and 17. pt was intubated and [facility] in [place] called for transport. Pt will be transfered via air.dr sweet accept report given Results Labs on day of discharge: Labs from last 24 hours 07/03/17 07/03/17 07/03/17 15:45 15:30 07:20 WBC RBC Hgb Hct MCV MCH MCHC RDW Plt Count MPV Neut % (Auto) Lymph % (Auto) Wise % (Auto) Eos % (Auto) Baso % (Auto) Neut # (Auto) Lymph # (Auto) Wise # (Auto) Eos # (Auto) Baso # (Auto) Total Counted Neutrophils % (Manual) Lymphocytes % (Manual) Monocytes % (Manual) Platelet Estimate Hypochromasia Specimen Source Left femoral O2 % 100% ABG pH 7.29 L ABG pCO2 36.7 ABG pO2 42.0 L ABG HCO3 17.3 L ABG Total CO2 18.4 L ABG O2 Saturation 70 L* ABG Base Excess -9.3 L Cruz Test Patient unable Sodium 135 L Potassium 4.0 Chloride 101 Carbon Dioxide 25 Anion Gap 13.0 BUN 12 Creatinine 0.67 L Estimated Creat Clear 67 Estimated GFR 120 Est GFR ( Amer) 145 Glucose 89 Calcium 7.6 L Total Bilirubin 0.5 AST 117 H D ALT 31 Alkaline Phosphatase 96 Total Creatine Kinase 962 H* CK-MB (CK-2) 2.6 D CK-MB (CK-2) Rel Index 0.3 Troponin I 0.21 H Total Protein 5.2 L Albumin 1.6 L Globulin 3.6 H Albumin/Globulin Ratio 0.4 L Urine Color Urine Appearance Urine pH Ur Specific [place] Urine Protein Urine Glucose (UA) Urine Ketones Urine Blood Urine Nitrate Urine Bilirubin Urine Urobilinogen Ur Leukocyte Esterase Urine RBC Urine WBC Urine Bacteria Urine Mucus 07/03/17 07/03/17 07/02/17 06:24 00:00 23:45 WBC 20.7 H* RBC 3.15 L Hgb 10.0 L Hct 30.6 L MCV 96.9 H MCH 31.7 H MCHC 32.7 RDW 16.3 Plt Count 79 L MPV 9.7 Neut % (Auto) 88.9 H Lymph % (Auto) 4.7 L Wise % (Auto) 4.7 Eos % (Auto) 1.6 Baso % (Auto) 0.1 Neut # (Auto) 18.4 H Lymph # (Auto) 0.8 Wise # (Auto) 1.0 Eos # (Auto) 0.3 Baso # (Auto) 0.0 Total Counted 100 Neutrophils % (Manual) 92 H Lymphocytes % (Manual) 5 L Monocytes % (Manual) 3 Platelet Estimate Slight dec Hypochromasia 1+ Specimen Source Left radial O2 % 50% jeanna mask ABG pH 7.45 ABG pCO2 32.4 L ABG pO2 56.4 L ABG HCO3 22.0 ABG Total CO2 23.0 ABG O2 Saturation 90 ABG Base Excess -2.0 Cruz Test Patient unable Sodium Potassium Chloride Carbon Dioxide Anion Gap
--- NOTE | 2017-07-03 18:47 | PC.NURSE ---
1615 THIS NURSE TOOK OVER CARE FOR PATIENT AT 1615. REPORT RECEIVED FROM KARI SOTELO RN. PATIENT IS ON VENTILATOR AT THIS TIME MODE IS SIMV, TV = 450, PEEP = 5, RATE = 16. LEVOPHED DRIP IS RUNNING AT 9MCG/MIN, PROPOFOL IS RUNNING AT 50 MCG/KG/MIN, NS @ 150 ML/HR. THIS NURSE ASSISTED IN RAPID RESPONSE RED PRIOR TO TAKING OVER PRIMARY CARE. 1720 [facility] CALLED AND STATES THAT PATIENT WILL BE TRANSFERRED TO [facility] ROOM 3412 REPORT CAN BE CALLED TO [phone]. [facility] IS 20 MINUTES OUT. REPORT CALLED AT THIS TIME TO MELISA AT [facility] [[email or web address] MICU. PATIENT IS STABLE AT THIS TIME WITH FAMILY AT BEDSIDE. 1750 FL[facility] TEAM ARRIVED ON FLOOR 1828 PATIENT TRASPORTED TO [facility] VIA STRETCHER WITH FLIGHT TEAM
[2017-07-04 01:08] LABS: POC Glucose,Bedside 77 mg/dL (70-110)
--- NOTE | 2017-07-20 20:51 | PC.NURSE ---
Medical Records sent to [facility] at
== END 2017-07-03 18:28 | disposition short-term general hospital (02) | DRG 208 ==
LOC: ER 12:43 → 2ND 13:29
PROVIDERS: Nurse Practitioner Family; Admitting Provider Emergency Medicine; Emergency Provider Emergency Medicine; Family Provider Emergency Medicine; PCP Emergency Medicine; Visit Provider Emergency Medicine
DX: J18.9 Pneumonia, unspecified organism (principal)
CPT/HCPCS: 31500; 94002; 71045; 80048; 80053; 81001; 82550; 82553; 82803; 82962; 83605; 83880; 84484; 85007; 85025; 87040; 87070; 87077; 87186; 87205; 87275; 87276; 93005; 93041; 94640; 94761; 96365; 96366; 99283; C1751; J2704; J3370

== ENCOUNTER 2017-10-28 03:44 | Inpatient (IN) ==
[2017-10-28 04:08] LABS: Microscopic, Urine URINE MICROSCOPIC (MICROSCOPIC)
[2017-10-28 04:09] LABS: Appearance,Urine CLEAR (Clear); Bilirubin,Urine Negative (Negative); Blood, Urine TRACE-I (Negative); Color,Urine YELLOW (Yellow); Glucose,Urine (UA) Negative (Negative); Ketones,Urine 1+ (Negative); Leukocyte Esterase,Urine Negative (Negative); Protein,Urine Negative (Negative); Specific Gravity, Urine 1.015 (1.005-1.030); Urobilinogen,Urine 0.2 EU/dl (0.2)
--- NOTE | 2017-10-28 04:16 | Emergency Department Note ---
ED Disposition Clinical Impression: Fever, Nausea, Cough, Thrombocytopenia Pneumonia Qualifiers: Pneumonia type: due to group B Streptococcus Laterality: left Lung location: unspecified part of lung Qualified Code(s): J15.3 - Pneumonia due to streptococcus, group B Leukocytosis, unspecified Qualifiers: Leukocytosis type: bandemia Qualified Code(s): D72.825 - Bandemia CAP (community acquired pneumonia) Qualifiers: Laterality: left Lung location: unspecified part of lung Qualified Code(s): J18.9 - Pneumonia, unspecified organism Disposition: Admitted as Observation Condition on Discharge: Fair Referrals: Jose Nassar MD [Primary Care Provider] - - Critical Care Critical Care Time: No (Not indicated) Attestation: On 10/28/17, the high probability of a clinically significant, sudden or life threatening deterioration of the following system(s) required my full and direct attention, intervention and personal management. The time I documented below is in addition to time spent performing reported procedures but includes the following listed in this critical care notation. Medical Decision Making - Medical Records Medical records reviewed: Yes: I reviewed the patient's medical records. - Lyndon Inquiry Pt receiving controlled substance: No (Not indicated) Lyndon was queried for this patient: No Vital Signs: 10/28/17 03:45 Temperature 99.9 F H Temperature Source Oral Pulse Rate [Right Brachial] 116 H Respiratory Rate 18 Blood Pressure [Right Arm] 153/132 Blood Pressure Mean [Right Arm] 139 Blood Pressure Position [Right Arm] Supine 02 Sat by Pulse Oximetry 100 Oxygen Delivery Method Room Air - Lab Data Lab Results 10/28/17 03:55: Urine Color Yellow, Urine Appearance Clear, Urine pH 7.0, Ur Specific [place] 1.015, Urine Protein Negative, Urine Glucose (UA) Negative, Urine Ketones 1+, Urine Blood Trace-i, Urine Nitrate Negative, Urine Bilirubin Negative, Urine Urobilinogen 0.2, Ur Leukocyte Esterase Negative, Urine RBC None , Urine WBC Occasional, Ur Squamous Epith Cells 3-5, Urine Bacteria Trace 10/28/17 03:55: Lactic Acid 2.2 H 10/28/17 03:55: Urine Opiates Screen Negative, Ur Barbituates Screen Negative, Ur Phencyclidine Scrn Negative, Ur Amphetamines Screen Negative, U Methamphetamines Scrn Negative, U Benzodiazepines Scrn Negative, Urine Cocaine Screen Negative, U Marijuana (THC) Screen Negative 10/28/17 04:20: WBC 20.3 H*, RBC 4.44 L, Hgb 12.8 L, Hct 40.6 L, MCV 91.6, MCH 28.7, MCHC 31.4 L, RDW 16.8, Plt Count 48 L*, MPV 8.5, Neut % (Auto) 91.2 H, Lymph % (Auto) 2.4 L, [place] % (Auto) 3.1, Eos % (Auto) 2.6, Baso % (Auto) 0.7, Neut # (Auto) 18.5 H, Lymph # (Auto) 0.5 L, [place] # (Auto) 0.6, Eos # (Auto) 0.5 H, Baso # (Auto) 0.1, Total Counted 100, Neutrophils % (Manual) 95 H, Band Neutrophils % 1.0, Lymphocytes % (Manual) 2 L, Monocytes % (Manual) 2, Platelet Estimate Moderate decrease, RBC Morphology Normal 10/28/17 04:20: Sodium 142, Potassium 3.7, Chloride 102, Carbon Dioxide 27, Anion Gap 16.7 H, BUN 12, Creatinine 0.95, Estimated Creat Clear 67, Estimated GFR 80, Est GFR ( Amer) 97, Glucose 175 H, Calcium 8.0 L, Total Bilirubin 1.1 H, AST 404 H*, ALT 101 H, Alkaline Phosphatase 137 H, Troponin I 0.02, Total Protein 6.4, Albumin 2.9 L, Globulin 3.5 H, Albumin/Globulin Ratio 0.8 L, Amylase 36, Lipase 79 Result diagrams: 10/28/17 04:20 10/28/17 04:20 Orders (Tests/Meds): ED MEDICATIONS Generic Name Dose Route Start Last Admin Trade Name Freq PRN Reason Stop Dose Admin Ceftriaxone Sodium 1 gm/ 50 mls @ 100 mls/hr 10/28/17 05:30 Sodium Chloride IV 11/11/17 05:29 Q24H ЕЛЕНА Protocol Discontinued Medications Generic Name Dose Route Start Last Admin Trade Name Freq PRN Reason Stop Dose Admin Acetaminophen 650 mg 10/28/17 03:53 10/28/17 04:02 Acetaminophen 325mg Tab PO 10/28/17 03:54 650 mg ONCE ONE Administration Sodium Chloride 1,000 mls @ 999 mls/hr 10/28/17 04:00 10/28/17 04:02 Sod Chlor 0.9% 1000ml Bag IV 10/28/17 05:00 999 mls/hr .Q1H1M ЕЛЕНА Administration Azithromycin 500 mg/ Sodium 250 mls @ 250 mls/hr 10/28/17 05:20 Chloride IV 10/28/17 05:21 ONCE ONE Protocol Ketorolac Tromethamine 30 mg 10/28/17 04:02 10/28/17 04:03 Toradol 30mg/Ml Vial IV 10/28/17 04:03 30 mg ONCE ONE Administration Ondansetron HCl 4 mg 10/28/17 03:53 10/28/17 04:02 Zofran 4mg/2ml Vial IV 10/28/17 03:54 4 mg ONCE ONE Administration ORDERS Category Date Time Status CT abdomen pelvis wo con Stat Cat Scan 10/28/17 03:53 Taken XR chest portable Stat Exams 10/28/17 03:53 Taken Blood Culture Stat Micro 10/28/17 04:12 Ordered General Adult HPI - General Chief complaint: Weakness Stated complaint: weakness Time Seen by Provider: 10/28/17 04:00 Mode of Arrival: EMS Source of Information: Patient, EMS Limitations: Physical Limitations Description of Symptoms (Recalled from ER Triage Doc. by RN): Brought in by EMS for reports of increased weakness and body aches. Pt has had a cough, fever. Pt reports nausea on arrival. - History of Present Illness Onset (ago): day(s) (4 days) Location: chest, back, abdomen, upper extremity, lower extremity Radiation: non-radiation Severity: moderate Severity scale (1-10): 5 Quality: aching Consistency: constant Relieving factors: none Exacerbating factors: none Associated symptoms: cough, fever/chills, malaise, nausea/vomiting, weakness Treatments prior to arrival: none - Related Data Home Medications Medication Instructions Recorded Confirmed oxycodone 10 mg tablet 10 mg PO Q6H tab 06/03/17 10/28/17 Cyclobenzaprine HCl 10 mg PO TID 07/02/17 10/28/17 [Cyclobenzaprine 10mg Tab] Methocarbamol [Methocarbamol 750mg 750 mg PO TID 07/02/17 10/28/17 Tab] Pregabalin [Pregabalin 50mg 50 mg PO BID 07/02/17 10/28/17 Capsule] Rivaroxaban [Xarelto 15mg tablet] 15 mg PO DAILY 07/02/17 10/28/17 Allergies Allergy/AdvReac Type Severity Reaction Status Date / Time duloxetine [From CYMBALTA] Allergy Intermediate MOOD Verified 07/01/17 10:59 CHANGES phenytoin [From DILANTIN] Allergy Intermediate I-RASH Verified 07/01/17 10:59 methadone [METHADONE] Allergy Unknown Verified 07/01/17 10:59 [facility] History I have reviewed the patient's past medical history: Yes Medical History: Reports:: Migraine, Pulmonary Embolism, Seizures Denies:: Cancer, Diabetes Mellitus Type 1, Diabetes Mellitus Type 2, Hypertension, Internal Pacemaker, MRSA Other Medical History: Reports: Chemotherapy Other Surgeries: Yes: Other. No: Pacemaker Amputation: No Fractures: No - Social History Smoking Status: Current every day smoker Tobacco Type: cigarettes # Packs/Day (cigarettes): 1 Alcohol Intake: former Alcohol Intake Frequency:: a few times a week Occupational Status: disabled Housing: house Household Members: none - Psychiatric History Expresses thoughts of harming self/others: None Suicide Plan Description: No Plan Family Hx:: Kidney Disease, Diabetes, Heart Attack ROS Obtained: Yes All systems reviewed & no additional complaints - Constitutional Constitutional: Reports fever(s), Reports malaise, Reports weakness, Reports weight loss - Cardiovascular Cardiovascular: Reports chest pain at rest - Respiratory Respiratory: Yes cough - Gastrointestinal Gastrointestingal: Reports: abdominal pain, nausea - Musculoskeletal Musculoskeletal: Reports back pain, Reports muscle aches - Neurologic Neurologic: Reports weakness Physical Exam - General General appearance: alert, in no apparent distress, in distress (mild distress) - Head Head exam: atraumatic, normocephalic - Eye Eye exam: Present: normal appearance, PERRL, EOMI - ENT ENT exam: Present: normal exam, normal oropharynx, mucous membranes moist, TM's normal bilaterally, normal external ear exam - Neck Neck exam: Present: normal inspection, full ROM, trachea midline. Absent: meningismus, lymphadenopathy - Chest Chest inspection: Present: normal inspection, symmetric chest wall rise. Absent : tenderness - Respiratory Respiratory exam: Present: normal lung sounds bilaterally. Absent: respiratory distress - Cardiovascular Cardiovascular exam: Present: regular rate, normal rhythm. Absent: JVD - Abdominal Exam Abdominal exam: Present: soft, normal bowel sounds. Absent: distention, tenderness, guarding - Extremities Exam Extremities exam: Present: normal inspection, full ROM, normal capillary refill. Absent: calf tenderness - Back Exam Back exam: Present: normal inspection. Absent: tenderness - Neurological Exam Neurological exam: Present: alert, oriented X3 - Skin Skin exam: Present: warm, dry, intact, normal color - Lymphatic Lymphatic Findings: no adenopathy
[2017-10-28 04:18] LABS: Amphetamine/Metha Screen,Urine Negative ng/mL (<1000); Barbiturates Screen,Urine Negative ng/mL (<200); Benzodiazepines Screen,Urine Negative ng/mL (200); Cannabinoid Screen,Urine Negative ng/mL (<50); Cocaine Screen,Urine Negative ng/g (<300); Methadone Screen,Urine Negative ng/mL (<300); Opiate Screen,Urine Negative ng/mL (<300); Phencyclidine Screen,Urine Negative ng/mL (<25)
[2017-10-28 04:20] LABS: Bacteria,Urine Trace /lpf; WBC,Urine Occasional #/hpf (0-3)
[2017-10-28 04:31] LABS: Basophils # 0.1 K/mm3 (0-0.2); Basophils % 0.7 % (0.1-2.0); Eosinophils # 0.5 K/mm3 (0.0-0.4); Eosinophils % 2.6 % (0.1-12.0); Hematocrit 40.6 % (42.0-52.0); Hemoglobin 12.8 g/dL (14.1-18.0); Lymphocytes # 0.5 K/mm3 (0.7-4.5); Lymphocytes % 2.4 K/mm3 (10-50); Mean Corpuscular HGB Conc 31.4 g/dL (31.8-35.4); Mean Corpuscular Hemoglobin 28.7 pg (27.0-31.2); Mean Corpuscular Volume 91.6 fl (80-94); Mean Platelet Volume 8.5 fl (7.4-10.4); Monocytes # 0.6 K/mm3 (0.1-1.0); Monocytes % 3.1 % (1.7-9.3); Neutrophils # 18.5 K/mm3 (1.8-7.8); Neutrophils % 91.2 % (37.0-80.0); Red Blood Count 4.44 M/mm3 (4.60-6.20); Red Cell Distribution Width 16.8 % (11.5-17.5); White Blood Count 20.3 K/mm3 (4.8-10.8)
[2017-10-28 04:37] LABS: Platelet Count 48 K/mm3 (142-424)
[2017-10-28 04:41] LABS: Lymphocytes % 2 % (10-50); Monocytes % 2 % (2-9); Neutrophils % 95 % (42-76); Total Cells Counted 100
[2017-10-28 04:42] LABS: RBC Morphology Normal
[2017-10-28 04:43] LABS: Albumin Level 2.9 gm/dL (3.4-5.0); Albumin/Globulin Ratio 0.8 (1.1-1.8); Anion Gap 16.7 mEq/L (5-15); Bilirubin,Total 1.1 mg/dL (0.2-1.0); Globulin 3.5 gm/dl (1.3-3.2); Potassium 3.7 mmoL/L (3.5-5.1); Total Protein,Serum 6.4 gm/dL (6.4-8.2)
--- NOTE | 2017-10-28 08:42 | Pharmacy Consult Notes ---
[facility] Pharmacy VTE Monitoring - Patient Demographics Admission date: 10/28/17 Report Date: 10/28/17 Time: 08:41 Allergies/Adverse Reactions: Patient Allergies duloxetine [From CYMBALTA] Allergy (Intermediate, Verified 07/01/17 10:59) MOOD CHANGES phenytoin [From DILANTIN] Allergy (Intermediate, Verified 07/01/17 10:59) I-RASH methadone [METHADONE] Allergy (Unknown, Verified 07/01/17 10:59) Height: 1.73 m Weight: 56.841 kg Patient Problems: Current Active Problems CAP (community acquired pneumonia) (Acute) Fever (Acute) Nausea (Acute) Cough (Acute) Pneumonia (Acute) Leukocytosis, unspecified (Acute) Thrombocytopenia (Acute) - VTE Risk Labs: VTE Related Lab Results Hgb 12.8 g/dL (14.1-18.0) L 10/28/17 04:20 Hct 40.6 % (42.0-52.0) L 10/28/17 04:20 Plt Count 48 K/mm3 (142-424) L* 10/28/17 04:20 BUN 12 mg/dL (7-18) 10/28/17 04:20 Creatinine 0.95 mg/dL (0.70-1.30) 10/28/17 04:20 Estimated Creat Clear 67 mL/min (0-300) 10/28/17 04:20 Was VTE Risk Assessment Performed: Yes VTE Risk Level: Low Risk Clinical Trial Participant: No - Prophylaxis VTE Prophylaxis Ordered?: Yes Types of VTE Prophylaxis: TEDS Knee High
[2017-10-28 09:43] LABS: Basophils # 0.1 K/mm3 (0-0.2); Basophils % 0.6 % (0.1-2.0); Eosinophils # 0.3 K/mm3 (0.0-0.4); Eosinophils % 1.9 % (0.1-12.0); Hematocrit 40.5 % (42.0-52.0); Hemoglobin 13.1 g/dL (14.1-18.0); Lymphocytes # 0.6 K/mm3 (0.7-4.5); Lymphocytes % 3.3 K/mm3 (10-50); Mean Corpuscular HGB Conc 32.5 g/dL (31.8-35.4); Mean Corpuscular Hemoglobin 29.7 pg (27.0-31.2); Mean Corpuscular Volume 91.6 fl (80-94); Mean Platelet Volume 9.2 fl (7.4-10.4); Monocytes # 0.9 K/mm3 (0.1-1.0); Neutrophils % 89.2 % (37.0-80.0); Red Blood Count 4.42 M/mm3 (4.60-6.20); Red Cell Distribution Width 16.8 % (11.5-17.5); White Blood Count 17.9 K/mm3 (4.8-10.8)
[2017-10-28 09:57] LABS: Alanine Aminotransferase 90 U/L (12-78); Albumin Level 2.9 gm/dL (3.4-5.0); Albumin/Globulin Ratio 0.8 (1.1-1.8); Alkaline Phosphatase 140 U/L (46-116); Anion Gap 14.8 mEq/L (5-15); Aspartate Amino Transferase 322 U/L (15-37); Bilirubin,Total 0.8 mg/dL (0.2-1.0); Blood Urea Nitrogen 11 mg/dL (7-18); Calcium 8.1 mg/dL (8.5-10.1); Carbon Dioxide 27 mmol/L (21.0-32.0); Chloride 103 mmol/L (98-107); Globulin 3.6 gm/dl (1.3-3.2); Glucose 137 mg/dL (74-106); Potassium 3.8 mmoL/L (3.5-5.1); Sodium 141 mmol/L (136-145); Total Protein,Serum 6.5 gm/dL (6.4-8.2)
[2017-10-28 09:58] LABS: Ethyl Alcohol < 3 mg/dL (0-99)
[2017-10-28 10:32] LABS: Platelet Count 48 K/mm3 (142-424)
--- NOTE | 2017-10-28 11:54 | History & Physical Report ---
*Admission Date: 10/28/17 *Chief complaint: abd pain *History of present illness: this wm presented to ed with not feeling well and cough - no hemoptysis - ught in by EMS for reports of increased weakness and body aches. Pt has had a cough , fever. Pt reports nausea on arrival.-no gi bleeding reported [facility] History I have reviewed the patient's past medical history: Yes Medical History: Reports:: Migraine, Myocardial Infarction, Pulmonary Embolism, Seizures Denies:: Cancer, Diabetes Mellitus Type 1, Diabetes Mellitus Type 2, Hypertension, Internal Pacemaker, MRSA Other Medical History: Reports: Chemotherapy Laterality Cases: Left: Total Knee Replacement Other Surgeries: Yes: Colon Resection, Other. No: Pacemaker Amputation: No Fractures: No - *Social History Educational Level: Completed High School Smoking Status: Current every day smoker Tobacco Type: cigarettes # Packs/Day (cigarettes): 1 Alcohol Intake: former Alcohol Intake Frequency:: a few times a week Occupational Status: disabled Housing: house Household Members: none - Psychiatric History Expresses thoughts of harming self/others: None Suicide Plan Description: No Plan *Family Hx:: Kidney Disease, Diabetes, Heart Attack Review of Systems - Review of Systems Review of systems:: pertinent systems reviewed and negative unless documented below - Constitutional Reports fatigue, Reports lack of energy, Denies fever(s) - Eyes Denies change in vision - ENT Denies sore throat - *Cardiovascular Denies chest pain - *Respiratory Reports cough, Denies coughing up blood - *Gastrointestinal Reports nausea, Denies abdominal pain, Denies bright, red blood in stools - *Genitourinary Denies blood in urine - *Musculoskeletal Denies joint pain - Integumentary/Breasts Denies rash - *Neurologic Reports weakness, Denies confusion - Psychiatric Denies confusion Meds Home Medications Medication Instructions Recorded Confirmed Type oxycodone 10 mg tablet 10 mg PO Q6H tab 06/03/17 10/28/17 History Cyclobenzaprine HCl 10 mg PO TID 07/02/17 10/28/17 History [Cyclobenzaprine 10mg Tab] Pregabalin [Pregabalin 50mg 50 mg PO BID 07/02/17 10/28/17 History Capsule] Rivaroxaban [Xarelto 15mg tablet] 15 mg PO DAILY 07/02/17 10/28/17 History Albuterol Sulfate [Albuterol HFA 2 puff IH Q4HP PRN 10/28/17 10/28/17 History Inhaler] Aspirin [Aspirin 81mg EC Tab] 81 mg PO DAILY 10/28/17 10/28/17 History Furosemide [Furosemide 20mg Tab] 20 mg PO DAILY 10/28/17 10/28/17 History Metoprolol Succinate 25 mg PO DAILY 10/28/17 10/28/17 History Potassium Chloride [Klor-con 20 10 meq PO DAILY 10/28/17 10/28/17 History mEq tablet] Tamsulosin HCl [Flomax 0.4mg 0.4 mg PO HS 10/28/17 10/28/17 History capsule] Allergies Allergy/AdvReac Type Severity Reaction Status Date / Time duloxetine [From CYMBALTA] Allergy Intermediate MOOD Verified 07/01/17 10:59 CHANGES phenytoin [From DILANTIN] Allergy Intermediate I-RASH Verified 07/01/17 10:59 methadone [METHADONE] Allergy Unknown Verified 07/01/17 10:59 Exam Vital signs and Labs for Last 24 Hours: Temp Pulse Resp BP Pulse Ox 98.5 F 83 20 163/106 98 10/28/17 11:11 10/28/17 11:11 10/28/17 11:11 10/28/17 11:11 10/28/17 11:11 Laboratory Results - last 24 hr 10/28/17 03:55: Urine Color Yellow, Urine Appearance Clear, Urine pH 7.0, Ur Specific [place] 1.015, Urine Protein Negative, Urine Glucose (UA) Negative, Urine Ketones 1+, Urine Blood Trace-i, Urine Nitrate Negative, Urine Bilirubin Negative, Urine Urobilinogen 0.2, Ur Leukocyte Esterase Negative, Urine RBC None , Urine WBC Occasional, Ur Squamous Epith Cells 3-5, Urine Bacteria Trace 10/28/17 03:55: Lactic Acid 2.2 H 10/28/17 03:55: Urine Opiates Screen Negative, Ur Barbituates Screen Negative, Ur Phencyclidine Scrn Negative, Ur Amphetamines Screen Negative, U Methamphetamines Scrn Negative, U Benzodiazepines Scrn Negative, Urine Cocaine Screen Negative, U Marijuana (THC) Screen Negative 10/28/17 04:20: WBC 20.3 H*, RBC 4.44 L, Hgb 12.8 L, Hct 40.6 L, MCV 91.6, MCH 28.7, MCHC 31.4 L, RDW 16.8, Plt Count 48 L*, MPV 8.5, Neut % (Auto) 91.2 H, Lymph % (Auto) 2.4 L, [place] % (Auto) 3.1, Eos % (Auto) 2.6, Baso % (Auto) 0.7, Neut # (Auto) 18.5 H, Lymph # (Auto) 0.5 L, [place] # (Auto) 0.6, Eos # (Auto) 0.5 H, Baso # (Auto) 0.1, Total Counted 100, Neutrophils % (Manual) 95 H, Band Neutrophils % 1.0, Lymphocytes % (Manual) 2 L, Monocytes % (Manual) 2, Platelet Estimate Moderate decrease, RBC Morphology Normal 10/28/17 04:20: Sodium 142, Potassium 3.7, Chloride 102, Carbon Dioxide 27, Anion Gap 16.7 H, BUN 12, Creatinine 0.95, Estimated Creat Clear 67, Estimated GFR 80, Est GFR ( Amer) 97, Glucose 175 H, Calcium 8.0 L, Total Bilirubin 1.1 H, AST 404 H*, ALT 101 H, Alkaline Phosphatase 137 H, Troponin I 0.02, Total Protein 6.4, Albumin 2.9 L, Globulin 3.5 H, Albumin/Globulin Ratio 0.8 L, Amylase 36, Lipase 79 10/28/17 08:15: Lactic Acid Fup @ 4Hr 1.9 10/28/17 09:30: WBC 17.9 H, RBC 4.42 L, Hgb 13.1 L, Hct 40.5 L, MCV 91.6, MCH 29.7, MCHC 32.5, RDW 16.8, Plt Count 48 L*, MPV 9.2, Neut % (Auto) 89.2 H, Lymph % (Auto) 3.3 L, [place] % (Auto) 5.0, Eos % (Auto) 1.9, Baso % (Auto) 0.6, Neut # (Auto) 16.0 H, Lymph # (Auto) 0.6 L, [place] # (Auto) 0.9, Eos # (Auto) 0.3 , Baso # (Auto) 0.1 10/28/17 09:30: Sodium 141, Potassium 3.8, Chloride 103, Carbon Dioxide 27, Anion Gap 14.8, BUN 11, Creatinine 0.85, Estimated Creat Clear 60, Estimated GFR 91, Est GFR ( Amer) 110, Glucose 137 H D, Calcium 8.1 L, Total Bilirubin 0.8, AST 322 H*, ALT 90 H, Alkaline Phosphatase 140 H, Total Protein 6.5, Albumin 2.9 L, Globulin 3.6 H, Albumin/Globulin Ratio 0.8 L, Plasma/Serum Alcohol < 3 I & O for Last 24 hours: Intake & Output 10/25/17 10/26/17 10/27/17 10/28/17 11:59 11:59 11:59 11:59 Intake Total 1000 / 1000 Balance 1000 / 1000 Weight 125 lb 5 oz - Constitutional no acute distress, thin - *Routine HEENT Exam Head: Present: normocephalic Eye: Present: EOMI, PERRL ENT: Present: mucous membranes dry - *Routine Neck Exam Absent: JVD - *Routine Respiratory Exam Present: rhonchi. Absent: respiratory distress - *Routine Cardiovascular Exam Present: RRR, murmur, S4 - *Routine Abdominal Exam Present: soft. Absent: tenderness - *Routine Extremities Exam Absent: calf tenderness - *Routine Skin Exam Present: intact - *Routine Neurological Exam Present: alert, oriented X3, CN II-XII intact - Routine Psychiatric Exam Present: normal affect H&P: Result - Labs Labs: Short CBC 10/28/17 10/28/17 Range/Units 04:20 09:30 WBC 20.3 H* 17.9 H (4.8-10.8) K/mm3 Hgb 12.8 L 13.1 L (14.1-18.0) g/dL Hct 40.6 L 40.5 L (42.0-52.0) % Plt Count 48 L* 48 L* (142-424) K/mm3 BMP 10/28/17 10/28/17 04:20 09:30 Sodium 142 141 Potassium 3.7 3.8 Chloride 102 103 Carbon Dioxide 27 27 BUN 12 11 Creatinine 0.95 0.85 Glucose 175 H 137 H D Calcium 8.0 L 8.1 L Cardiac Enzymes 10/28/17 Range/Units 04:20 Troponin I 0.02 (0.00-0.06) ng/ml Liver Function 10/28/17 10/28/17 Range/Units 04:20 09:30 Total Bilirubin 1.1 H 0.8 (0.2-1.0) mg/dL AST 404 H* 322 H* (15-37) U/L ALT 101 H 90 H (12-78) U/L Alkaline Phosphatase 137 H 140 H (46-116) U/L Albumin 2.9 L 2.9 L (3.4-5.0) gm/dL Urine 10/28/17 Range/Units 03:55 Urine Color Yellow (Yellow) Urine Appearance Clear (Clear) Urine pH 7.0 (5.0-8.5) Ur Specific [place] 1.015 (1.005-1.030) Urine Protein Negative (Negative) Urine Glucose (UA) Negative (Negative) Assessment and Plan (1) AAA (abdominal aortic aneurysm) without rupture Current visit: Yes Status: Acute Category: Medical Code(s): I71.4 - Abdominal aortic aneurysm, without rupture (2) Leukocytosis, unspecified Current visit: Yes Status: Acute Qualifiers: Leukocytosis type: bandemia Qualified Code(s): D72.825 - Bandemia Category: Medical Code(s): D72.829 - Elevated white blood cell count, unspecified (3) Thrombocytopenia Current visit: Yes Status: Acute Category: Medical Code(s): D69.6 - Thrombocytopenia, unspecified (4) Abscess, abdomen Current visit: Yes Status: Acute Category: Medical (5) Low body mass index (BMI) Current visit: Yes Status: Acute Category: Medical (6) Elevated LFTs Current visit: Yes Status: Acute Category: Medical Code(s): R94.5 - Abnormal results of liver function studies
--- NOTE | 2017-10-28 13:28 | Consult Report ---
*Admission Date: 10/28/17 *Chief complaint: Dizziness and nausea *History of present illness: This is a 62-year-old gentleman seen in consultation again evaluation regarding possible left flank/paracolic gutter abscesses. He presented to the emergency department with vague complaints of dizziness, nausea, body aches, increased weakness and cough. Workup and evaluation included a CT scan that showed changes consistent with possible right-sided colitis and possible abscesses versus noninfected fluid collections in the left flank/paracolic gutter. Surgical service was consulted for further evaluation with regard to these collections. Review of Systems - Constitutional Reports fatigue, Denies fever(s) - *Cardiovascular Denies chest pain - *Respiratory Reports cough - *Gastrointestinal Reports nausea, Denies abdominal pain, Denies bright, red blood in stools, Denies black, tarry stools, Denies pain with swallowing - *Musculoskeletal Reports joint pain - *Neurologic Reports weakness, Denies confusion - Psychiatric Denies anxiety - Hematologic/Lymphatic Denies easy bleeding [facility] History Medical History: Reports:: Migraine, Myocardial Infarction, Pulmonary Embolism, Seizures Denies:: Cancer, Diabetes Mellitus Type 1, Diabetes Mellitus Type 2, Hypertension, Internal Pacemaker, MRSA Other Medical History: Reports: Chemotherapy Laterality Cases: Left: Total Knee Replacement Other Surgeries: Yes: Colon Resection, Other. No: Pacemaker Amputation: No Fractures: No - *Social History Educational Level: Completed High School Smoking Status: Current every day smoker Tobacco Type: cigarettes # Packs/Day (cigarettes): 1 Alcohol Intake: former Alcohol Intake Frequency:: a few times a week Occupational Status: disabled Housing: house Household Members: none - Psychiatric History Expresses thoughts of harming self/others: None Suicide Plan Description: No Plan *Family Hx:: Kidney Disease, Diabetes, Heart Attack Meds Home Medications Medication Instructions Recorded Confirmed Type oxycodone 10 mg tablet 10 mg PO Q6H tab 06/03/17 10/28/17 History Cyclobenzaprine HCl 10 mg PO TID 07/02/17 10/28/17 History [Cyclobenzaprine 10mg Tab] Pregabalin [Pregabalin 50mg 50 mg PO BID 07/02/17 10/28/17 History Capsule] Rivaroxaban [Xarelto 15mg tablet] 15 mg PO DAILY 07/02/17 10/28/17 History Albuterol Sulfate [Albuterol HFA 2 puff IH Q4HP PRN 10/28/17 10/28/17 History Inhaler] Aspirin [Aspirin 81mg EC Tab] 81 mg PO DAILY 10/28/17 10/28/17 History Furosemide [Furosemide 20mg Tab] 20 mg PO DAILY 10/28/17 10/28/17 History Metoprolol Succinate 25 mg PO DAILY 10/28/17 10/28/17 History Potassium Chloride [Klor-con 20 10 meq PO DAILY 10/28/17 10/28/17 History mEq tablet] Tamsulosin HCl [Flomax 0.4mg 0.4 mg PO HS 10/28/17 10/28/17 History capsule] Allergies Allergy/AdvReac Type Severity Reaction Status Date / Time duloxetine [From CYMBALTA] Allergy Intermediate MOOD Verified 07/01/17 10:59 CHANGES phenytoin [From DILANTIN] Allergy Intermediate I-RASH Verified 07/01/17 10:59 methadone [METHADONE] Allergy Unknown Verified 07/01/17 10:59 Exam Vital signs and Labs for Last 24 Hours: Temp Pulse Resp BP Pulse Ox 98.5 F 83 20 163/106 98 10/28/17 11:11 10/28/17 11:11 10/28/17 11:11 10/28/17 11:11 10/28/17 11:11 Laboratory Results - last 24 hr 10/28/17 03:55: Urine Color Yellow, Urine Appearance Clear, Urine pH 7.0, Ur Specific [place] 1.015, Urine Protein Negative, Urine Glucose (UA) Negative, Urine Ketones 1+, Urine Blood Trace-i, Urine Nitrate Negative, Urine Bilirubin Negative, Urine Urobilinogen 0.2, Ur Leukocyte Esterase Negative, Urine RBC None , Urine WBC Occasional, Ur Squamous Epith Cells 3-5, Urine Bacteria Trace 10/28/17 03:55: Lactic Acid 2.2 H 10/28/17 03:55: Urine Opiates Screen Negative, Ur Barbituates Screen Negative, Ur Phencyclidine Scrn Negative, Ur Amphetamines Screen Negative, U Methamphetamines Scrn Negative, U Benzodiazepines Scrn Negative, Urine Cocaine Screen Negative, U Marijuana (THC) Screen Negative 10/28/17 04:20: WBC 20.3 H*, RBC 4.44 L, Hgb 12.8 L, Hct 40.6 L, MCV 91.6, MCH 28.7, MCHC 31.4 L, RDW 16.8, Plt Count 48 L*, MPV 8.5, Neut % (Auto) 91.2 H, Lymph % (Auto) 2.4 L, [place] % (Auto) 3.1, Eos % (Auto) 2.6, Baso % (Auto) 0.7, Neut # (Auto) 18.5 H, Lymph # (Auto) 0.5 L, [place] # (Auto) 0.6, Eos # (Auto) 0.5 H, Baso # (Auto) 0.1, Total Counted 100, Neutrophils % (Manual) 95 H, Band Neutrophils % 1.0, Lymphocytes % (Manual) 2 L, Monocytes % (Manual) 2, Platelet Estimate Moderate decrease, RBC Morphology Normal 10/28/17 04:20: Sodium 142, Potassium 3.7, Chloride 102, Carbon Dioxide 27, Anion Gap 16.7 H, BUN 12, Creatinine 0.95, Estimated Creat Clear 67, Estimated GFR 80, Est GFR ( Amer) 97, Glucose 175 H, Calcium 8.0 L, Total Bilirubin 1.1 H, AST 404 H*, ALT 101 H, Alkaline Phosphatase 137 H, Troponin I 0.02, Total Protein 6.4, Albumin 2.9 L, Globulin 3.5 H, Albumin/Globulin Ratio 0.8 L, Amylase 36, Lipase 79 10/28/17 08:15: Lactic Acid Fup @ 4Hr 1.9 10/28/17 09:30: WBC 17.9 H, RBC 4.42 L, Hgb 13.1 L, Hct 40.5 L, MCV 91.6, MCH 29.7, MCHC 32.5, RDW 16.8, Plt Count 48 L*, MPV 9.2, Neut % (Auto) 89.2 H, Lymph % (Auto) 3.3 L, [place] % (Auto) 5.0, Eos % (Auto) 1.9, Baso % (Auto) 0.6, Neut # (Auto) 16.0 H, Lymph # (Auto) 0.6 L, [place] # (Auto) 0.9, Eos # (Auto) 0.3 , Baso # (Auto) 0.1 10/28/17 09:30: Sodium 141, Potassium 3.8, Chloride 103, Carbon Dioxide 27, Anion Gap 14.8, BUN 11, Creatinine 0.85, Estimated Creat Clear 60, Estimated GFR 91, Est GFR ( Amer) 110, Glucose 137 H D, Calcium 8.1 L, Total Bilirubin 0.8, AST 322 H*, ALT 90 H, Alkaline Phosphatase 140 H, Total Protein 6.5, Albumin 2.9 L, Globulin 3.6 H, Albumin/Globulin Ratio 0.8 L, Plasma/Serum Alcohol < 3 I & O for Last 24 hours: Intake & Output 10/26/17 10/27/17 10/28/17 10/29/17 11:59 11:59 11:59 11:59 Intake Total 1000 / 1000 0 / 0 Balance 1000 / 1000 0 / 0 Weight 125 lb 5 oz - Constitutional no acute distress - *Routine Respiratory Exam Absent: respiratory distress - *Routine Cardiovascular Exam Present: RRR - *Routine Abdominal Exam Present: soft. Absent: tenderness Results - Labs 10/28/17 09:30 10/28/17 09:30 Laboratory Results - last 24 hr 10/28/17 03:55: Urine Color Yellow, Urine Appearance Clear, Urine pH 7.0, Ur Specific [place] 1.015, Urine Protein Negative, Urine Glucose (UA) Negative, Urine Ketones 1+, Urine Blood Trace-i, Urine Nitrate Negative, Urine Bilirubin Negative, Urine Urobilinogen 0.2, Ur Leukocyte Esterase Negative, Urine RBC None , Urine WBC Occasional, Ur Squamous Epith Cells 3-5, Urine Bacteria Trace 10/28/17 03:55: Lactic Acid 2.2 H 10/28/17 03:55: Urine Opiates Screen Negative, Ur Barbituates Screen Negative, Ur Phencyclidine Scrn Negative, Ur Amphetamines Screen Negative, U Methamphetamines Scrn Negative, U Benzodiazepines Scrn Negative, Urine Cocaine Screen Negative, U Marijuana (THC) Screen Negative 10/28/17 04:20: WBC 20.3 H*, RBC 4.44 L, Hgb 12.8 L, Hct 40.6 L, MCV 91.6, MCH 28.7, MCHC 31.4 L, RDW 16.8, Plt Count 48 L*, MPV 8.5, Neut % (Auto) 91.2 H, Lymph % (Auto) 2.4 L, [place] % (Auto) 3.1, Eos % (Auto) 2.6, Baso % (Auto) 0.7, Neut # (Auto) 18.5 H, Lymph # (Auto) 0.5 L, [place] # (Auto) 0.6, Eos # (Auto) 0.5 H, Baso # (Auto) 0.1, Total Counted 100, Neutrophils % (Manual) 95 H, Band Neutrophils % 1.0, Lymphocytes % (Manual) 2 L, Monocytes % (Manual) 2, Platelet Estimate Moderate decrease, RBC Morphology Normal 10/28/17 04:20: Sodium 142, Potassium 3.7, Chloride 102, Carbon Dioxide 27, Anion Gap 16.7 H, BUN 12, Creatinine 0.95, Estimated Creat Clear 67, Estimated GFR 80, Est GFR ( Amer) 97, Glucose 175 H, Calcium 8.0 L, Total Bilirubin 1.1 H, AST 404 H*, ALT 101 H, Alkaline Phosphatase 137 H, Troponin I 0.02, Total Protein 6.4, Albumin 2.9 L, Globulin 3.5 H, Albumin/Globulin Ratio 0.8 L, Amylase 36, Lipase 79 10/28/17 08:15: Lactic Acid Fup @ 4Hr 1.9 10/28/17 09:30: WBC 17.9 H, RBC 4.42 L, Hgb 13.1 L, Hct 40.5 L, MCV 91.6, MCH 29.7, MCHC 32.5, RDW 16.8, Plt Count 48 L*, MPV 9.2, Neut % (Auto) 89.2 H, Lymph % (Auto) 3.3 L, [place] % (Auto) 5.0, Eos % (Auto) 1.9, Baso % (Auto) 0.6, Neut # (Auto) 16.0 H, Lymph # (Auto) 0.6 L, [place] # (Auto) 0.9, Eos # (Auto) 0.3 , Baso # (Auto) 0.1 10/28/17 09:30: Sodium 141, Potassium 3.8, Chloride 103, Carbon Dioxide 27, Anion Gap 14.8, BUN 11, Creatinine 0.85, Estimated Creat Clear 60, Estimated GFR 91, Est GFR ( Amer) 110, Glucose 137 H D, Calcium 8.1 L, Total Bilirubin 0.8, AST 322 H*, ALT 90 H, Alkaline Phosphatase 140 H, Total Protein 6.5, Albumin 2.9 L, Globulin 3.6 H, Albumin/Globulin Ratio 0.8 L, Plasma/Serum Alcohol < 3 - Imaging CT scan - abdomen: report reviewed, image reviewed CT scan - pelvis: report reviewed, image reviewed Assessment and Plan (1) AAA (abdominal aortic aneurysm) without rupture Current visit: Yes Status: Acute Category: Medical Code(s): I71.4 - Abdominal aortic aneurysm, without rupture (2) Leukocytosis, unspecified Current visit: Yes Status: Acute Qualifiers: Leukocytosis type: bandemia Qualified Code(s): D72.825 - Bandemia Category: Medical Code(s): D72.829 - Elevated white blood cell count, unspecified Possibly secondary to colitis. Possibly secondary to left-sided fluid collection/abscesses. (3) Thrombocytopenia Current visit: Yes Status: Acute Category: Medical Code(s): D69.6 - Thrombocytopenia, unspecified (4) Abscess, abdomen Problem details: ? true abscess Current visit: Yes Status: Acute Category : Medical I have had a long discussion with radiology concerning the collections along the left paracolic gutter/left flank. Whether these represent true abscesses is somewhat questionable. The possibility of remote pancreatitis and possible pancreatic pseudocyst has also been noted as a possibility per radiology. One collection would possibly be amenable to radiographic drainage; however, there is no sign of severe fat stranding around the area and the density of the central portion of the cavity is such that percutaneous drainage may result in no significant return. The patient does have multiple comorbid conditions and risks associated with any intervention may outweigh the benefit. The patient will be maintained on Levaquin and Flagyl with close follow-up. (5) Low body mass index (BMI) Current visit: Yes Status: Acute Category: Medical (6) Elevated LFTs Current visit: Yes Status: Acute Category: Medical Code(s): R94.5 - Abnormal results of liver function studies (7) Colitis Current visit: Yes Status: Acute Category: Medical Code(s): K52.9 - Noninfective gastroenteritis and colitis, unspecified
[2017-10-29 06:17] LABS: Anion Gap 11.5 mEq/L (5-15); Calcium 7.5 mg/dL (8.5-10.1)
[2017-10-29 06:19] LABS: Basophils # 0.1 K/mm3 (0-0.2); Basophils % 0.6 % (0.1-2.0); Eosinophils # 0.4 K/mm3 (0.0-0.4); Eosinophils % 3.3 % (0.1-12.0); Hematocrit 38.7 % (42.0-52.0); Hemoglobin 12.5 g/dL (14.1-18.0); Lymphocytes # 1.2 K/mm3 (0.7-4.5); Mean Corpuscular HGB Conc 32.2 g/dL (31.8-35.4); Mean Corpuscular Hemoglobin 29.2 pg (27.0-31.2); Mean Corpuscular Volume 90.7 fl (80-94); Monocytes # 0.8 K/mm3 (0.1-1.0); Monocytes % 5.8 % (1.7-9.3); Neutrophils # 10.6 K/mm3 (1.8-7.8); Neutrophils % 81.2 % (37.0-80.0); Red Blood Count 4.26 M/mm3 (4.60-6.20); Red Cell Distribution Width 16.9 % (11.5-17.5); White Blood Count 13.1 K/mm3 (4.8-10.8)
[2017-10-29 06:31] LABS: Potassium 3.5 mmoL/L (3.5-5.1)
--- NOTE | 2017-10-29 06:47 | Progress Note ---
Subjective Patient reports: feels better (no abdominal pain) Exam Vital signs and Labs for Last 24 Hours: Temp Pulse Resp BP Pulse Ox 98.8 F 103 H 16 155/87 100 10/29/17 04:37 10/29/17 04:37 10/29/17 04:37 10/29/17 04:37 10/29/17 04:37 Laboratory Results - last 24 hr 10/28/17 08:15: Lactic Acid Fup @ 4Hr 1.9 10/28/17 09:30: WBC 17.9 H, RBC 4.42 L, Hgb 13.1 L, Hct 40.5 L, MCV 91.6, MCH 29.7, MCHC 32.5, RDW 16.8, Plt Count 48 L*, MPV 9.2, Neut % (Auto) 89.2 H, Lymph % (Auto) 3.3 L, [place] % (Auto) 5.0, Eos % (Auto) 1.9, Baso % (Auto) 0.6, Neut # (Auto) 16.0 H, Lymph # (Auto) 0.6 L, [place] # (Auto) 0.9, Eos # (Auto) 0.3 , Baso # (Auto) 0.1 10/28/17 09:30: Sodium 141, Potassium 3.8, Chloride 103, Carbon Dioxide 27, Anion Gap 14.8, BUN 11, Creatinine 0.85, Estimated Creat Clear 60, Estimated GFR 91, Est GFR ( Amer) 110, Glucose 137 H D, Calcium 8.1 L, Total Bilirubin 0.8, AST 322 H*, ALT 90 H, Alkaline Phosphatase 140 H, Total Protein 6.5, Albumin 2.9 L, Globulin 3.6 H, Albumin/Globulin Ratio 0.8 L, Plasma/Serum Alcohol < 3 10/29/17 05:40: Sodium 139, Potassium 3.5, Chloride 102, Carbon Dioxide 29, Anion Gap 11.5, BUN 8 D, Creatinine 0.80, Estimated Creat Clear 60, Estimated GFR 97, Est GFR ( Amer) 118, Glucose 101 D, Calcium 7.5 L I & O for Last 24 hours: Intake & Output 10/26/17 10/27/17 10/28/17 10/29/17 11:59 11:59 11:59 11:59 Intake Total 1000 / 1000 780 / 780 Output Total 1300 / 1300 Balance 1000 / 1000 -520 / -520 Weight 125 lb 5 oz 125 lb 5.007 oz - Constitutional no acute distress - *Routine Respiratory Exam Absent: respiratory distress - *Routine Abdominal Exam Present: soft. Absent: tenderness Progress Note: A&P (1) AAA (abdominal aortic aneurysm) without rupture Status: Acute Current Visit: Yes (2) Leukocytosis, unspecified Status: Acute Assessment and plan: Follow-up morning labs Current Visit: Yes (3) Thrombocytopenia Status: Acute Current Visit: Yes (4) Abscess, abdomen Problem details: ? true abscess Status: Acute Assessment and plan: Continue antibiotics for now Consider repeat CT scan in 1-3 weeks for reevaluation unless patient is asymptomatic and WBC normal Current Visit: Yes (5) Low body mass index (BMI) Status: Acute Current Visit: Yes (6) Elevated LFTs Status: Acute Current Visit: Yes (7) Colitis Status: Acute Current Visit: Yes
[2017-10-29 07:52] LABS: Platelet Count 41 K/mm3 (142-424)
--- NOTE | 2017-10-29 10:18 | Discharge Summary ---
General - General Admission date:: 10/28/17 Discharge date: 10/29/17 HPI HPI: This is a 62-year-old gentleman seen in consultation again evaluation regarding possible left flank/paracolic gutter abscesses. He presented to the emergency department with vague complaints of dizziness, nausea, body aches, increased weakness and cough. Workup and evaluation included a CT scan that showed changes consistent with possible right-sided colitis and possible abscesses versus noninfected fluid collections in the left flank/paracolic gutter. Surgical service was consulted for further evaluation with regard to these collections. Hospital Course Hospital Course: surgery consult- see note ct abd pelvis:IMPRESSION: 1. Fluid collections within the left paracolic gutter with some mild stranding of fat around this region. Abscess is a consideration. 2. Infrarenal abdominal aortic aneurysm which may be slightly larger compared to the previous study 3. Thickening of the ascending colon and cecum suggesting colitis. 4. Distended gallbladder. 5. Enlarged prostate with distended urinary bladder ct #2 IMPRESSION: 1. Fusiform infrarenal abdominal aortic aneurysm slightly larger compared to the previous study measured 4.5 cm in maximum transverse dimension and 4.2 cm in AP dimension. 2. No evidence of aortic dissection or leak. 3. Colitis of the ascending colon. 4. Fluid collections in the left paracolic gutter and iliac fossa suspicious for abscess. cta IMPRESSION: No evidence of thoracic aortic aneurysm or thoracic aortic dissection. There are atheromatous changes with an ulcerated plaque along the lower thoracic aorta laterally similar to the previous exam. Centrilobular and paraseptal emphysema with scattered blebs Will discharge patient home we will start Flagyl Levaquin and Flomax patient is to follow-up with surgery and primary care provider for further evaluation. Patient will follow up with Dr. Love regarding AAA Objective Vital signs: Temp Pulse Resp BP Pulse Ox 99.0 F 56 L 20 154/90 93 L 10/29/17 08:00 10/29/17 08:00 10/29/17 08:00 10/29/17 08:00 10/29/17 08:00 no acute distress - *Routine HEENT Exam Head: Present: normocephalic Eye: Present: PERRL ENT: Present: mucous membranes moist - *Routine Neck Exam Present: full ROM - *Routine Respiratory Exam Present: CTA bilaterally - *Routine Cardiovascular Exam Present: RRR - *Routine Abdominal Exam Present: soft, normoactive bowel sounds - *Routine Extremities Exam Present: full ROM - *Routine Skin Exam Present: intact - *Routine Neurological Exam Present: alert, oriented X3, CN II-XII intact - Routine Psychiatric Exam Present: normal affect, normal thought process Results Labs on day of discharge: Labs from last 24 hours 10/29/17 10/29/17 10/29/17 06:10 06:10 05:40 WBC 13.1 H D RBC 4.26 L Hgb 12.5 L Hct 38.7 L MCV 90.7 MCH 29.2 MCHC 32.2 RDW 16.9 Plt Count 41 L* MPV 10.0 Neut % (Auto) 81.2 H Lymph % (Auto) 9.0 L [place] % (Auto) 5.8 Eos % (Auto) 3.3 Baso % (Auto) 0.6 Neut # (Auto) 10.6 H Lymph # (Auto) 1.2 [place] # (Auto) 0.8 Eos # (Auto) 0.4 Baso # (Auto) 0.1 ESR 6 Sodium Potassium Chloride Carbon Dioxide Anion Gap BUN Creatinine Estimated Creat Clear Estimated GFR Est GFR ( Amer) Glucose Calcium C-Reactive Protein 2.1 H 10/29/17 10/28/17 05:40 09:30 WBC 17.9 H RBC 4.42 L Hgb 13.1 L Hct 40.5 L MCV 91.6 MCH 29.7 MCHC 32.5 RDW 16.8 Plt Count 48 L* MPV 9.2 Neut % (Auto) 89.2 H Lymph % (Auto) 3.3 L [place] % (Auto) 5.0 Eos % (Auto) 1.9 Baso % (Auto) 0.6 Neut # (Auto) 16.0 H Lymph # (Auto) 0.6 L [place] # (Auto) 0.9 Eos # (Auto) 0.3 Baso # (Auto) 0.1 ESR Sodium 139 Potassium 3.5 Chloride 102 Carbon Dioxide 29 Anion Gap 11.5 BUN 8 D Creatinine 0.80 Estimated Creat Clear 60 Estimated GFR 97 Est GFR ( Amer) 118 Glucose 101 D Calcium 7.5 L C-Reactive Protein - Additional Comments Rounded with Dr. Nassar all orders per Cesario DS: Diagnosis - Discharge Diagnosis (1) AAA (abdominal aortic aneurysm) without rupture Status: Acute (2) Leukocytosis, unspecified Status: Acute (3) Thrombocytopenia Status: Acute (4) Abscess, abdomen Status: Acute Problem details: ? true abscess (5) Low body mass index (BMI) Status: Acute (6) Elevated LFTs Status: Acute (7) Colitis Status: Acute Discharge Plan - Patient Discharge Instructions ACTIVITY: Continue current activity DIET: continue same diet - Follow up Plan Follow up with: Jose Nassar MD [Primary Care Provider] - 11/05/17 Patrick Centeno MD [Staff Physician] - 11/02/17 Disposition: Home, Self-Senior Living Medications: Home Medications Medication Instructions Recorded Confirmed Type oxycodone 10 mg tablet 10 mg PO Q6H tab 06/03/17 10/28/17 History Cyclobenzaprine HCl 10 mg PO TID 07/02/17 10/28/17 History [Cyclobenzaprine 10mg Tab] Pregabalin [Pregabalin 50mg 50 mg PO BID 07/02/17 10/28/17 History Capsule] Rivaroxaban [Xarelto 15mg tablet] 15 mg PO DAILY 07/02/17 10/28/17 History Albuterol Sulfate [Albuterol HFA 2 puff IH Q4HP PRN 10/28/17 10/28/17 History Inhaler] Aspirin [Aspirin 81mg EC Tab] 81 mg PO DAILY 10/28/17 10/28/17 History Furosemide [Furosemide 20mg Tab] 20 mg PO DAILY 10/28/17 10/28/17 History Metoprolol Succinate 25 mg PO DAILY 10/28/17 10/28/17 History Potassium Chloride [Klor-con 20 10 meq PO DAILY 10/28/17 10/28/17 History mEq tablet] Prescriptions/Medication Reconciliation: New levoFLOXacin [Levaquin 500mg tab] 500 mg PO DAILY #7 tab metroNIDAZOLE [Flagyl] 500 mg PO TID 10 Days #30 tab Continue oxycodone 10 mg tablet 10 mg PO Q6H tab Cyclobenzaprine HCl [Cyclobenzaprine 10mg Tab] 10 mg PO TID Pregabalin [Pregabalin 50mg Capsule] 50 mg PO BID Rivaroxaban [Xarelto 15mg tablet] 15 mg PO DAILY Furosemide [Furosemide 20mg Tab] 20 mg PO DAILY Tamsulosin HCl [Flomax 0.4mg capsule] 0.4 mg PO HS #30 cap.er.24h Aspirin [Aspirin 81mg EC Tab] 81 mg PO DAILY Metoprolol Succinate 25 mg PO DAILY Potassium Chloride [Klor-con 20 mEq tablet] 10 meq PO DAILY Albuterol Sulfate [Albuterol HFA Inhaler] 2 puff IH Q4HP PRN PRN Reason: Shortness Of Breath
[2017-10-29 11:43] VITALS: BP 148/91
== END 2017-10-29 12:30 | disposition home or self-care (01) ==
LOC: 2ND 03:44 → ER 03:44 → OBSVTOIN 06:35 → 2ND 06:36
PROVIDERS: ADMIT Emergency Medicine; ATTEND Emergency Medicine

== ENCOUNTER → 2017-11-17 08:16 | Outpatient (CLI) | payer MEDICARE, MEDICAID, SELFPAY ==
[2017-11-17 08:43] LABS: Anion Gap 10.6 mEq/L (5-15); Blood Urea Nitrogen 11 mg/dL (7-18); Calcium 8.7 mg/dL (8.5-10.1); Carbon Dioxide 29 mmol/L (21.0-32.0); Chloride 101 mmol/L (98-107); Creatinine,Serum 1.02 mg/dL (0.70-1.30); Estimated Glomerular Filt Rate 74 ml/min (>60); GFR (African American) 89 ML/MIN (>60); Glucose 104 mg/dL (74-106); Potassium 4.6 mmoL/L (3.5-5.1); Sodium 136 mmol/L (136-145)
[2017-11-17 08:50] LABS: Basophils # 0.8 K/mm3 (0-0.2); Basophils % 2.3 % (0.1-2.0); Eosinophils # 0.8 K/mm3 (0.0-0.4); Eosinophils % 2.3 % (0.1-12.0); Hemoglobin 12.8 g/dL (14.1-18.0); Lymphocytes # 2.9 K/mm3 (0.7-4.5); Lymphocytes % 8.3 K/mm3 (10-50); Mean Corpuscular HGB Conc 30.4 g/dL (31.8-35.4); Mean Corpuscular Hemoglobin 28.8 pg (27.0-31.2); Mean Corpuscular Volume 94.8 fl (80-94); Mean Platelet Volume 7.2 fl (7.4-10.4); Monocytes # 1.9 K/mm3 (0.1-1.0); Monocytes % 5.4 % (1.7-9.3); Neutrophils # 29.1 K/mm3 (1.8-7.8); Neutrophils % 81.7 % (37.0-80.0); Platelet Count 389 K/mm3 (142-424); Red Blood Count 4.43 M/mm3 (4.60-6.20); Red Cell Distribution Width 17.1 % (11.5-17.5)
--- NOTE | 2017-11-17 08:51 | CT_ITS ---
CT abdomen pelvis w con CLINICAL INDICATION: Follow-up flank abscess, high white blood cell count ITS.REASON: abscess of flank ORDERING PHYSICIAN: Anthony Page MD PATIENT AGE: 62 years COMPARISON: 10/28/2017 TECHNIQUE: Axial images obtained with sagittal and coronal reformats. All CT scans at the facility use one or more dose reduction, viz: automated exposure control; ma/kV adjustment per patient size (including targeted exams where dose is matched to indication; i.e. head); or iterative reconstruction technique. PROCEDURE: Oral Contrast: None IV Contrast: 75 mL [id number] . FINDINGS: No acute finding in the lung bases. Small bleb is present along the left hilum. Gallbladder is slightly distended and there is mild prominence of the common bile duct and proximal biliary radicles not significantly changed. The common bile duct measures approximately 10 mm in diameter. The spleen and adrenal glands have an unremarkable appearance. There is pancreatic atrophy. There are bilateral renal cysts. There is an infrarenal abdominal aortic aneurysm similar to the previous exam measuring up to 4.2 x 4.4 cm. The aneurysm ends at the bifurcation of the aorta very there is diffuse atherosclerotic calcification of the aortoiliac vessels. There is an oval fluid collection once again noted in the left flank paracolic gutter just superior to the iliac crest and in the left iliac fossa with some minimal stranding of the fat in this region. The superior collection is 3.4 x 2.3 cm. The inferior collection is 3.6 x 2.1 cm. This is compared to 3.8 x 2.4 and 4.2 x 2.3 cm on the previous exam. No gas is evident within these collections. Post surgical changes are present involving the anterior abdominal wall. No intestinal obstruction or free air. There is diverticulosis of the descending colon but no evidence of diverticulitis. There is old wedge compression fracture of L1 and T12. IMPRESSION: 1. Mildly distended gallbladder and mild prominence of the common bile duct and proximal biliary radicles. 2. Infrarenal abdominal aortic aneurysm at 4.2 x 4.4 cm unchanged. 3. No change in the left flank and iliac fossa fluid collections with some minimal stranding of the fat in this area. Small abscess or seroma is considered.
[2017-11-17 09:00] LABS: MANUAL DIFFERENTIAL MANUAL DIFFERENTIAL (MANUAL DIFF)
--- NOTE | 2017-11-17 10:20 | HMH.ITSHM ---
PREGABLIN 50 MG OSYCODONE 10 MG CYCLOBENZAPRINE 10 MG ALBUTEROL SULFATE 2 PUFF INHALER ASPIRIN 81 MG METOPROLOL SUCCINATE 25 MG POTASSIUM CHLORIDE 10 MEQ PO DAILY TAMSULOSIN HCL 0.4 MG LEVOFLOZACIN 500 MG FLUTLCASONE 100 MCG- VILANTEROL 25 MCG/DOSE POWDER FOR INHALATION 1 INH DAILY ONDANSETRON HCL 4 MG TABLET 4 MG PO TID PRN
[2017-11-17 13:22] LABS: Eosinophils % 2 % (0-3); Lymphocytes % 10 % (10-50); Monocytes % 19 % (2-9); Neutrophils % 65 % (42-76); Total Cells Counted 100
[2017-11-17 13:23] LABS: Hypochromasia 1+
[2017-11-17 13:24] LABS: Macrocytosis 1+
[2017-11-17 13:26] LABS: Platelet Estimate Normal
== END ==
PROVIDERS: Family Provider Emergency Medicine; PCP Emergency Medicine; Visit Provider Surgery
DX: L02.211 Cutaneous abscess of abdominal wall (principal); N41.9 Inflammatory disease of prostate, unspecified
CPT/HCPCS: 36415; 74177; 80048; 85007; 85025; Q9967

== ENCOUNTER 2018-06-28 11:38 | Observation (INO) ==
[2018-06-28 12:14] LABS: Basophils # 0.1 K/mm3 (0-0.2); Eosinophils # 0.1 K/mm3 (0.0-0.4); Eosinophils % 0.7 % (0.1-12.0); Hematocrit 43.8 % (42.0-52.0); Hemoglobin 14.3 g/dL (14.1-18.0); Lymphocytes # 2.9 K/mm3 (0.7-4.5); Lymphocytes % 29.1 % (10-50); Mean Corpuscular HGB Conc 32.7 g/dL (31.8-35.4); Mean Corpuscular Hemoglobin 29.3 pg (27.0-31.2); Mean Corpuscular Volume 89.7 fl (80-94); Mean Platelet Volume 7.5 fl (7.4-10.4); Monocytes # 0.5 K/mm3 (0.1-1.0); Neutrophils # 6.5 K/mm3 (1.8-7.8); Neutrophils % 64.2 % (37.0-80.0); Platelet Count 168 K/mm3 (142-424); Red Blood Count 4.88 M/mm3 (4.60-6.20); Red Cell Distribution Width 17.7 % (11.5-17.5)
[2018-06-28 12:41] LABS: Anion Gap 16.3 mEq/L (5-15); Blood Urea Nitrogen 13 mg/dL (7-18); Calcium 8.7 mg/dL (8.5-10.1); Carbon Dioxide 28 mmol/L (21.0-32.0); Chloride 103 mmol/L (98-107); Creatine Kinase 122 U/L (39-308); Ethyl Alcohol 345 mg/dL (0-99); Glucose 132 mg/dL (74-106); Sodium 143 mmol/L (136-145)
[2018-06-28 12:42] LABS: Potassium 4.3 mmoL/L (3.5-5.1)
--- NOTE | 2018-06-28 13:04 | Emergency Department Note ---
ED Disposition Clinical Impression: Alcohol abuse, Low body mass index (BMI) Chest pain Qualifiers: Chest pain type: precordial pain Qualified Code(s): R07.2 - Precordial pain Leukemia Qualifiers: Leukemia type: unspecified Leukemia Active/Remission status: without remission Qualified Code(s): C95.90 - Leukemia, unspecified not having achieved remission Disposition: Admitted as Observation Condition on Discharge: Serious Referrals: Provider,Referral, [Primary Care Provider] - - Critical Care Critical Care Time: No Attestation: On 06/28/18, the high probability of a clinically significant, sudden or life threatening deterioration of the following system(s) required my full and direct attention, intervention and personal management. The time I documented below is in addition to time spent performing reported procedures but includes the following listed in this critical care notation. Medical Decision Making - Medical Records Medical records reviewed: Yes: I reviewed the patient's medical records. - [place]don Inquiry Pt receiving controlled substance: No Vital Signs: 06/28/18 11:39 06/28/18 12:09 06/28/18 13:09 Temperature 97.4 F L Temperature Source Oral Pulse Rate 107 H Pulse Rate [Right Brachial] 90 87 90 Respiratory Rate 17 19 19 Blood Pressure Blood Pressure [Right Arm] 162/90 H 164/92 H 167/94 H Blood Pressure Mean [Right Arm] 114 116 118 Blood Pressure Source Blood Pressure Source [Right Arm] Automatic Cuff Blood Pressure Position Blood Pressure Position [Right Arm] Supine 02 Sat by Pulse Oximetry 96 95 96 Oxygen Delivery Method Room Air 06/28/18 14:00 Temperature 98.2 F Temperature Source Oral Pulse Rate 90 Pulse Rate [Right Brachial] Respiratory Rate 19 Blood Pressure 167/94 H Blood Pressure [Right Arm] Blood Pressure Mean [Right Arm] Blood Pressure Source Automatic Cuff Blood Pressure Source [Right Arm] Blood Pressure Position Sitting Blood Pressure Position [Right Arm] 02 Sat by Pulse Oximetry Oxygen Delivery Method Room Air - Lab Data Lab results reviewed: Yes: I reviewed the patient's lab results. Lab Results 06/28/18 12:03: WBC 10.0, RBC 4.88, Hgb 14.3, Hct 43.8, MCV 89.7, MCH 29.3, MCHC 32.7, RDW 17.7 H, Plt Count 168, MPV 7.5, Neut % (Auto) 64.2, Lymph % (Auto) 29.1, [place] % (Auto) 5.0, Eos % (Auto) 0.7, Baso % (Auto) 1.0, Neut # (Auto) 6.5, Lymph # (Auto) 2.9, [place] # (Auto) 0.5, Eos # (Auto) 0.1, Baso # (Auto) 0.1 06/28/18 12:03: Sodium 143, Potassium 4.3, Chloride 103, Carbon Dioxide 28, Anion Gap 16.3 H, BUN 13, Creatinine 0.78, Estimated Creat Clear 63, Estimated GFR 100, Est GFR ( Amer) 121, Glucose 132 H, Calcium 8.7, Total Creatine Kinase 122, CK-MB (CK-2) 1.4 D, CK-MB (CK-2) Rel Index 1.1, Troponin I < 0.02, Plasma/Serum Alcohol 345 H* Result diagrams: 06/28/18 12:03 06/28/18 12:03 Orders (Tests/Meds): ED MEDICATIONS Discontinued Medications Generic Name Dose Route Start Last Admin Trade Name Rexq PRN Reason Stop Dose Admin Aspirin 324 mg 06/28/18 11:56 06/28/18 11:55 Aspirin 81mg Chewable Tablet PO 06/28/18 11:57 324 mg ONCE ONE Administration - Radiology Data #1 Image(s): Chest Image Reviewed: Yes I reviewed the patient's radiology image Preliminary Findings: Normal/NAD - ECG Data Tracing #1 I reviewed this ECG and interpreted as documented below: Ischemic changes: non-specific ST-T wave changes - Physician Consults Physician Consulted: [email or web address] Reason -: Pt condition Chest Pain HPI - General Chief Complaint: Chest Pain Stated Complaint: chest pain Time Seen by Provider: 06/28/18 11:40 Mode of Arrival: Family Vehicle Source of Information: Patient, Relative, Medical Record ( ) Limitations: No Limitations Description of Symptoms (Recalled from ER Triage Doc. by RN): Pt states that he has had pain in the center of his chest for 1-2 days. - History of Present Illness HPI narrative: pt with acute chest pain today with hx of heart disease - pt with no recent card eval - he does admit to etoh use MD complaint: chest pain indicative of cardiac Onset (ago): hour(s) Duration: now resolved Activity at onset: during rest Pain location: left chest Severity: moderate Quality: tightness Risk Factors for CAD: Family Hx of CAD Treatments prior to or on arrival for Cardiac Chest Pain: none - LILLY Score for Non-Stemi Age of Patient: 60-69 years old Heart Rate: 90-109 bpm Systolic Blood Pressure: 160-199 mmHg Serum Creatinine: 0.40-0.79 mg/dl CHF [place] Class: I-No CHF Other Risk Factors: None Non-Stemi Risk Score: 87 - Related Data Prior Cardiac Testing/Procedures: Stenting Home Medications Medication Instructions Recorded Confirmed oxycodone 10 mg tablet 10 mg PO Q6H tab 06/03/17 12/25/17 Cyclobenzaprine HCl 10 mg PO TID 07/02/17 12/25/17 [Cyclobenzaprine 10mg Tab] Albuterol Sulfate [Albuterol HFA 2 puff IH Q4HP PRN 10/28/17 12/25/17 Inhaler] Potassium Chloride [Klor-con 20 10 meq PO DAILY 10/28/17 12/25/17 mEq tablet] Fluticasone/Vilanterol [Breo 1 inh INHALATION DAILY 11/18/17 12/25/17 Ellipta 100-25 Mcg INH] Imatinib Mesylate 400 mg PO DAILY 12/25/17 12/25/17 Tamsulosin HCl [Flomax 0.4mg 0.4 mg PO HS PRN 12/25/17 12/25/17 capsule] Previous Rx's Medication Instructions Recorded aspirin 81 mg tablet,delayed 81 mg PO DAILY #30 tab 01/02/18 release metoprolol succinate ER 25 mg 25 mg PO DAILY #30 tab 01/02/18 tablet,extended release 24 hr ondansetron HCl 4 mg tablet 4 mg PO TID PRN #30 tab 03/19/18 Allergies Allergy/AdvReac Type Severity Reaction Status Date / Time No Known Allergies Allergy Verified 06/28/18 11:52 [facility] History - Hepatitis A Screen Drug use history?: No High risk sexual behaviors?: No History of sexually transmitted infection?: No Currently employed?: No Childcare worker?: No Do you have indoor plumbing?: Yes Do you have electricity?: Yes Attestation statement:: This patient has been screened for Hepatitis A risk factors. I have reviewed the patient's past medical history: Yes Medical History: Reports:: Cancer, Migraine, Myocardial Infarction, Pulmonary Embolism, Seizures Denies:: Diabetes Mellitus Type 1, Diabetes Mellitus Type 2, Hypertension, Internal Pacemaker, MRSA Other Medical History: Reports: Chemotherapy Laterality Cases: Left: Arthroscopy Knee Other Surgeries: Yes: Colon Resection, Other. No: Pacemaker Amputation: No Fractures: Yes (clavicle, back in 3 places) - Social History Smoking Status: Current every day smoker Tobacco Type: cigarettes # Packs/Day (cigarettes): 2 Alcohol Intake: current Alcohol Intake Frequency:: 0-2 drinks per day Substance Use Type: denies use Occupational Status: disabled Housing: house Household Members: none - Psychiatric History Expresses thoughts of harming self/others: None Suicide Plan Description: No Plan Family Hx:: Kidney Disease, Diabetes, Heart Attack ROS Obtained: Yes All systems reviewed & no additional complaints - Constitutional Constitutional: Denies fever(s) - Eyes Eyes: Denies change in vision - ENT Ears, Nose, Mouth, and Throat: Denies sore throat - Cardiovascular Cardiovascular: Reports as per HPI, Reports chest pain, Reports dyspnea - Respiratory Respiratory: No cough - Gastrointestinal Gastrointestingal: Denies: abdominal pain, heartburn - Genitourinary Male Genitourinary: Denies hematuria - Musculoskeletal Musculoskeletal: Denies joint pain, Denies joint swelling, Denies limited range of motion - Integumentary/Breasts Skin/Breast: Denies rash - Neurologic Neurologic: Denies headache(s), Denies seizure-like activity Physical Exam - General General appearance: alert - Head Head exam: normocephalic - Eye Eye exam: Present: PERRL, EOMI - ENT ENT exam: Present: mucous membranes moist - Neck Neck exam: Present: trachea midline - Respiratory Respiratory exam: Present: normal lung sounds bilaterally. Absent: respiratory distress - Cardiovascular Cardiovascular exam: Present: regular rate, systolic murmur, +S4 - Abdominal Exam Abdominal exam: Present: soft. Absent: guarding - Extremities Exam Extremities exam: Absent: calf tenderness - Neurological Exam Neurological exam: Present: alert, CN II-XII intact - Psychiatric Psychiatric exam: Present: normal affect - Skin Skin exam: Absent: rash
--- NOTE | 2018-06-28 13:57 | Consult Report ---
History of Present Illness Consult date: 06/28/18 Consult reason: chest pain Chief complaint: chest pain Additional Medical History:: 1. Coronary artery disease A. History of cardiac arrest with subsequent RCA stenting 07/2009 2. Tobacco abuse 3. Alcohol use 4. Hyperlipidemia 5. Hypertension 6. Medication noncompliance 7. 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 Chronic lymphocytic leukemia 9. Chronic back pain with history per patient of fractures 10. Status post midline abdominal hernia repair History of present illness: 62-year-old white male who is a poor historian was evaluated in the ER for chest pain. Patient described as substernal with radiation to the back with associated nausea and vomiting. Patient does have a cardiac history as noted above relates no recent cardiac evaluation or cardiology follow-up. EKG is sinus tach at 107 bpm with PVCs and T wave abnormalities inferolaterally, nonspecific. Patient likely pain-free with initial troponin that is normal. Patient does have chronic alcohol use history with a alcohol level of 348 at this time. Cardiology consulted for evaluation and recommendations. Preliminary echocardiogram does show reduced ejection fraction [facility] History Medical History: Reports:: Cancer, Migraine, Myocardial Infarction, Pulmonary Embolism, Seizures Denies:: Diabetes Mellitus Type 1, Diabetes Mellitus Type 2, Hypertension, Internal Pacemaker, MRSA Other Medical History: Reports: Chemotherapy Laterality Cases: Left: Arthroscopy Knee Other Surgeries: Yes: Colon Resection, Other. No: Pacemaker Amputation: No Fractures: Yes (clavicle, back in 3 places) - *Social History Smoking Status: Current every day smoker Tobacco Type: cigarettes # Packs/Day (cigarettes): 2 Alcohol Intake: current Alcohol Intake Frequency:: 0-2 drinks per day Substance Use Type: denies use Occupational Status: disabled Housing: house Household Members: none Travel in the last 8 weeks: None - Psychiatric History Expresses thoughts of harming self/others: None Suicide Plan Description: No Plan Family Hx:: Kidney Disease, Diabetes, Heart Attack Meds Home Medications Medication Instructions Recorded Confirmed Type oxycodone 10 mg tablet 10 mg PO Q6H tab 06/03/17 12/25/17 History Cyclobenzaprine HCl 10 mg PO TID 07/02/17 12/25/17 History [Cyclobenzaprine 10mg Tab] Albuterol Sulfate [Albuterol HFA 2 puff IH Q4HP PRN 10/28/17 12/25/17 History Inhaler] Potassium Chloride [Klor-con 20 10 meq PO DAILY 10/28/17 12/25/17 History mEq tablet] Fluticasone/Vilanterol [Breo 1 inh INHALATION DAILY 11/18/17 12/25/17 History Ellipta 100-25 Mcg INH] Imatinib Mesylate 400 mg PO DAILY 12/25/17 12/25/17 History Tamsulosin HCl [Flomax 0.4mg 0.4 mg PO HS PRN 12/25/17 12/25/17 History capsule] aspirin 81 mg tablet,delayed 81 mg PO DAILY #30 tab 01/02/18 Rx release metoprolol succinate ER 25 mg 25 mg PO DAILY #30 tab 01/02/18 Rx tablet,extended release 24 hr ondansetron HCl 4 mg tablet 4 mg PO TID PRN #30 tab 03/19/18 Rx Allergies Allergy/AdvReac Type Severity Reaction Status Date / Time No Known Allergies Allergy Verified 06/28/18 11:52 Review of Systems - *Cardiovascular Reports chest pain, Reports shortness of breath with activity - *Respiratory Reports shortness of breath with activity - *Gastrointestinal Reports abdominal pain, Reports nausea, Reports vomiting - *Genitourinary Denies blood in urine - *Musculoskeletal Reports back pain Exam Vital signs and Labs for Last 24 Hours: Temp Pulse Resp BP Pulse Ox 97.4 F L 104 H 19 166/107 H 100 06/28/18 11:39 06/28/18 11:39 06/28/18 11:39 06/28/18 11:39 06/28/18 11:39 Laboratory Results - last 24 hr 06/28/18 12:03: WBC 10.0, RBC 4.88, Hgb 14.3, Hct 43.8, MCV 89.7, MCH 29.3, MCHC 32.7, RDW 17.7 H, Plt Count 168, MPV 7.5, Neut % (Auto) 64.2, Lymph % (Auto) 29.1, [place] % (Auto) 5.0, Eos % (Auto) 0.7, Baso % (Auto) 1.0, Neut # (Auto) 6.5, Lymph # (Auto) 2.9, [place] # (Auto) 0.5, Eos # (Auto) 0.1, Baso # (Auto) 0.1 06/28/18 12:03: Sodium 143, Potassium 4.3, Chloride 103, Carbon Dioxide 28, Anion Gap 16.3 H, BUN 13, Creatinine 0.78, Estimated Creat Clear 63, Estimated GFR 100, Est GFR ( Amer) 121, Glucose 132 H, Calcium 8.7, Total Creatine Kinase 122, CK-MB (CK-2) 1.4 D, CK-MB (CK-2) Rel Index 1.1, Troponin I < 0.02, Plasma/Serum Alcohol 345 H* I & O for Last 24 hours: Intake & Output 06/26/18 06/27/18 06/28/18 06/29/18 11:59 11:59 11:59 11:59 Weight 131 lb - *Routine HEENT Exam Head: Present: normocephalic Eye: Present: EOMI, PERRL ENT: Present: mucous membranes moist - *Routine Neck Exam Present: supple. Absent: JVD, carotid bruit - *Routine Respiratory Exam Present: decreased breath sounds, CTA bilaterally, rhonchi. Absent: accessory muscle use, rales, wheezes - *Routine Cardiovascular Exam Present: RRR. Absent: murmur, gallop, rubs - *Routine Abdominal Exam Present: soft. Absent: tenderness, distended, guarding - *Routine Extremities Exam Absent: edema, calf tenderness - *Routine Neurological Exam Present: alert, oriented X3, moving all extremities Assessment and Plan (1) Chest pain Current visit: Yes Status: Acute Category: Medical Code(s): R07.9 - Chest pain, unspecified (2) CAD (coronary artery disease) Current visit: Yes Status: Acute Category: Medical Code(s): I25.10 - Atherosclerotic heart disease of [place] coronary artery without angina pectoris (3) History of right coronary artery stent placement Current visit: Yes Status: Acute Category: Surgical Code(s): Z95.5 - Presence of coronary angioplasty implant and graft (4) Cardiomyopathy Current visit: Yes Status: Acute Category: Medical Code(s): I42.9 - Cardiomyopathy, unspecified (5) Alcohol abuse Current visit: Yes Status: Acute Category: Medical Code(s): F10.10 - Alcohol abuse, uncomplicated (6) Tobacco abuse Current visit: Yes Status: Acute Category: Medical Code(s): Z72.0 - Tobacco use (7) Hypertension Current visit: Yes Status: Acute Category: Medical Code(s): I10 - Essential (primary) hypertension (8) Tachycardia Current visit: Yes Status: Acute Category: Medical Code(s): R00.0 - Tachycardia, unspecified - Assessment and plan all Dx Assessment and Plan for all problems:: 1. Admit for observation and serial troponins with plans for cardiac catheterization tomorrow in light of the patient's cardiac risk factors (including tobacco use, prior IN with chronic arrest, prior coronary stenting and cardiomyopathy on echocardiogram today) in the setting of chest pain. 2. Due to the patient's alcohol use with elevated blood alcohol level at this time will hold off on cardiac procedures today. 3. Will add beta-melina therapy along with ARB for the Cardiomyopathy and aspirin therapy for CAD.
--- NOTE | 2018-06-28 20:46 | Cardiology Report ---
PROCEDURE: 2-D M-mode and color Doppler study INDICATIONS FOR THE TEST: Chest pain X COPD Heart Murmur Tobacco SmokingX Palpitations Fatigue Syncope Edema HypertensionXDiabetes Mellitus Rheumatic Fever SOBXDOEXXObesity HyperlipidemiaX Family History HD Additional History CAD,STENTS,ETOH ABUSE,[place],LEUKEMIA PATIENT INFORMATION HEIGHT: 68 WEIGHT:131 GENDER: Male B/P:166/107 2-D/M-MODE INTERPRETATION: 2-D MEASUREMENTS OBSERVED VALUES IN CMS Right Ventricular Dimension (RVDd) 2.2 Interventricular Septum (Thickness)(IVsd) .8 Left Ventricular Internal Dimensions(LVIDd) 5.0 Left Ventricular Posterior Wall (Thickness)(LVPWd) .7 Aortic Root 4.4 Aortic Cusp Separation 2.0 Left Atrial Dimensions (LAD) 1.7 2D 1. Technically difficult and poor study. 2. The left atrium is mildly enlarged, left ventricle is mildly dilated, there is reduced left ventricular systolic function, visually estimated ejection fraction 30-35%, left ventricle is globally hypokinetic. 3. The right atrium and right ventricle are normal size and contractility. 4. The aortic root and ascending aorta is enlarged measuring 4.4 cm. The morphology of the aortic valve is not well visualized 5. The mitral and tricuspid valve leaflets are minimally thickened. 6. No significant pericardial effusion noted. DOPPLER INTERROGATION: Doppler interrogation of the aortic, mitral and tricuspid valvular presence of mild mitral and tricuspid regurgitation, tricuspid regurgitation jet velocity is inadequate for calculation of the right ventricular systolic pressure, diastolic parameters are inconclusive. CONCLUSION: 1. Technically difficult study because of the patient's factor and poor acoustic windows 2. Mildly enlarged left atrium, dilated left ventricle, visually estimated ejection fraction 30-35% left ventricle is globally hypokinetic, diastolic parameters are inconclusive. 3. Enlarged aortic root and ascending aorta measuring 4.4 cm, aortic valve morphology is not well visualized, there is no aortic stenosis aortic insufficiency. 4. Mild mitral and tricuspid regurgitation 5. No significant pericardial effusion noted.
--- NOTE | 2018-06-28 20:52 | Pharmacy Consult Notes ---
[facility] Pharmacy VTE Monitoring - Patient Demographics Admission date: 06/28/18 Report Date: 06/28/18 Time: 20:52 Allergies/Adverse Reactions: Patient Allergies No Known Allergies Allergy (Verified 06/28/18 11:52) Height: 1.73 m Weight: 58.513 kg Patient Problems: Current Active Problems Low body mass index (BMI) (Acute) Leukemia (Acute) Chest pain (Acute) CAD (coronary artery disease) (Acute) History of right coronary artery stent placement (Acute) Cardiomyopathy (Acute) Alcohol abuse (Acute) Tobacco abuse (Acute) Hypertension (Acute) Tachycardia (Acute) Chest pain (Acute) - VTE Risk Labs: VTE Related Lab Results Hgb 14.3 g/dL (14.1-18.0) 06/28/18 12:03 Hct 43.8 % (42.0-52.0) 06/28/18 12:03 Plt Count 168 K/mm3 (142-424) 06/28/18 12:03 BUN 13 mg/dL (7-18) 06/28/18 12:03 Creatinine 0.78 mg/dL (0.70-1.30) 06/28/18 12:03 Estimated Creat Clear 63 mL/min (50-200) 06/28/18 12:03 Was VTE Risk Assessment Performed: Yes VTE Score: 4 VTE Risk Level: Low Risk Clinical Trial Participant: No - Prophylaxis VTE Prophylaxis Ordered?: Yes Types of VTE Prophylaxis: TEDS Knee High
[2018-06-29 06:13] LABS: Basophils # 0.1 K/mm3 (0-0.2); Basophils % 0.6 % (0.1-2.0); Eosinophils # 0.1 K/mm3 (0.0-0.4); Eosinophils % 1.1 % (0.1-12.0); Hematocrit 36.4 % (42.0-52.0); Lymphocytes # 1.6 K/mm3 (0.7-4.5); Lymphocytes % 16.9 % (10-50); Mean Corpuscular HGB Conc 32.6 g/dL (31.8-35.4); Mean Corpuscular Hemoglobin 29.3 pg (27.0-31.2); Mean Corpuscular Volume 89.8 fl (80-94); Mean Platelet Volume 6.8 fl (7.4-10.4); Monocytes # 0.6 K/mm3 (0.1-1.0); Monocytes % 5.9 % (1.7-9.3); Neutrophils # 7.3 K/mm3 (1.8-7.8); Neutrophils % 75.4 % (37.0-80.0); Platelet Count 111 K/mm3 (142-424); Red Blood Count 4.06 M/mm3 (4.60-6.20); Red Cell Distribution Width 17.3 % (11.5-17.5); White Blood Count 9.7 K/mm3 (4.8-10.8)
[2018-06-29 06:18] LABS: INR 1.12 (0.9-1.1); Prothrombin Time 11.5 seconds (9.4-11.8)
[2018-06-29 06:24] LABS: Anion Gap 12.5 mEq/L (5-15); Potassium 4.5 mmoL/L (3.5-5.1)
[2018-06-29 06:58] LABS: Calcium 7.8 mg/dL (8.5-10.1)
--- NOTE | 2018-06-29 09:08 | History & Physical Report ---
*Admission Date: 06/28/18 *Chief complaint: chest [pain [facility] History Medical History: Reports:: Cancer, Migraine, Myocardial Infarction, Pulmonary Embolism, Seizures Denies:: Diabetes Mellitus Type 1, Diabetes Mellitus Type 2, Hypertension, Internal Pacemaker, MRSA Have you ever received a pneumonia vaccine?: No Have you received a flu vaccine this season?: No Other Medical History: Reports: Chemotherapy Laterality Cases: Left: Arthroscopy Knee Other Surgeries: Yes: Colon Resection, Other. No: Pacemaker Amputation: No Fractures: Yes (clavicle, back in 3 places) - *Social History Smoking Status: Current every day smoker Tobacco Type: cigarettes # Packs/Day (cigarettes): 2 Alcohol Intake: current Alcohol Intake Frequency:: 0-2 drinks per day Substance Use Type: denies use Occupational Status: disabled Housing: house Household Members: none Travel in the last 8 weeks: None - Psychiatric History Expresses thoughts of harming self/others: None Suicide Plan Description: No Plan Family Hx:: Kidney Disease, Diabetes, Heart Attack Review of Systems - *Neurologic Denies headache(s), Denies seizure-like activity Meds Home Medications Medication Instructions Recorded Confirmed Type Cyclobenzaprine HCl 10 mg PO TIDP PRN 07/02/17 06/29/18 History [Cyclobenzaprine 10mg Tab] Potassium Chloride [Klor-con 20 10 meq PO DAILY 10/28/17 06/28/18 History mEq tablet] Imatinib Mesylate 400 mg PO DAILY 12/25/17 06/28/18 History Tamsulosin HCl [Flomax 0.4mg 0.4 mg PO HS 12/25/17 06/28/18 History capsule] aspirin 81 mg tablet,delayed 81 mg PO DAILY #30 tab 01/02/18 06/28/18 Rx release metoprolol succinate ER 25 mg 25 mg PO DAILY #30 tab 01/02/18 06/28/18 Rx tablet,extended release 24 hr ondansetron HCl 4 mg tablet 4 mg PO TID PRN #30 tab 03/19/18 06/28/18 Rx Amitriptyline HCl [Elavil 50mg 50 mg PO HS 06/29/18 06/29/18 History tablet] Atorvastatin Calcium [Lipitor 40mg 40 mg PO HS 06/29/18 06/29/18 History Tablet] Lisinopril [Lisinopril 5mg Tablet] 5 mg PO DAILY 06/29/18 06/29/18 History Oxycodone HCl [Oxycodone (IR) 15mg 15 mg PO Q6H 06/29/18 06/29/18 History Tab] Allergies Allergy/AdvReac Type Severity Reaction Status Date / Time No Known Allergies Allergy Verified 06/28/18 11:52 Exam Vital signs and Labs for Last 24 Hours: Temp Pulse Resp BP Pulse Ox 98.9 F 82 23 165/91 H 98 06/29/18 04:00 06/29/18 04:00 06/29/18 04:00 06/29/18 04:00 06/29/18 08:25 Laboratory Results - last 24 hr 06/28/18 12:03: WBC 10.0, RBC 4.88, Hgb 14.3, Hct 43.8, MCV 89.7, MCH 29.3, MCHC 32.7, RDW 17.7 H, Plt Count 168, MPV 7.5, Neut % (Auto) 64.2, Lymph % (Auto) 29.1, [place] % (Auto) 5.0, Eos % (Auto) 0.7, Baso % (Auto) 1.0, Neut # (Auto) 6.5, Lymph # (Auto) 2.9, [place] # (Auto) 0.5, Eos # (Auto) 0.1, Baso # (Auto) 0.1 06/28/18 12:03: Sodium 143, Potassium 4.3, Chloride 103, Carbon Dioxide 28, Anion Gap 16.3 H, BUN 13, Creatinine 0.78, Estimated Creat Clear 63, Estimated GFR 100, Est GFR ( Amer) 121, Glucose 132 H, Calcium 8.7, Total Creatine Kinase 122, CK-MB (CK-2) 1.4 D, CK-MB (CK-2) Rel Index 1.1, Troponin I < 0.02, Plasma/Serum Alcohol 345 H* 06/28/18 17:15: Troponin I < 0.02 06/28/18 20:22: Troponin I < 0.02 06/29/18 05:16: WBC 9.7, RBC 4.06 L, Hgb 12.0 L D, Hct 36.4 L, MCV 89.8, MCH 29.3, MCHC 32.6, RDW 17.3, Plt Count 111 L D, MPV 6.8 L, Neut % (Auto) 75.4, Lymph % (Auto) 16.9, [place] % (Auto) 5.9, Eos % (Auto) 1.1, Baso % (Auto) 0.6, Neut # (Auto) 7.3, Lymph # (Auto) 1.6, [place] # (Auto) 0.6, Eos # (Auto) 0.1, Baso # (Auto) 0.1 06/29/18 05:16: PT 11.5, INR 1.12 H 06/29/18 05:16: Sodium 141, Potassium 4.5, Chloride 104, Carbon Dioxide 29, Anion Gap 12.5, BUN 11, Creatinine 0.93, Estimated Creat Clear 62, Estimated GFR 82, Est GFR ( Amer) 99, Glucose 105 D, Calcium 7.8 L D, Magnesium 1.8, Triglycerides 295 H, Cholesterol 62 L, LDL Cholesterol -28 L, VLDL Cholesterol 59 H, HDL Cholesterol 31, Cholesterol/HDL Ratio 2.0 I & O for Last 24 hours: Intake & Output 06/26/18 06/27/18 06/28/18 06/29/18 11:59 11:59 11:59 11:59 Intake Total 1850 / 1850 Output Total 550 / 550 Balance 1300 / 1300 Weight 131 lb 129 lb Assessment and Plan (1) Chest pain Current visit: Yes Status: Acute Category: Medical Code(s): R07.9 - Chest pain, unspecified (2) CAD (coronary artery disease) Current visit: Yes Status: Acute Category: Medical Code(s): I25.10 - Atherosclerotic heart disease of [place] coronary artery without angina pectoris (3) History of right coronary artery stent placement Current visit: Yes Status: Acute Category: Surgical Code(s): Z95.5 - Presence of coronary angioplasty implant and graft (4) Cardiomyopathy Current visit: Yes Status: Acute Category: Medical Code(s): I42.9 - Cardiomyopathy, unspecified (5) Alcohol abuse Current visit: Yes Status: Acute Category: Medical Code(s): F10.10 - Alcohol abuse, uncomplicated (6) Tobacco abuse Current visit: Yes Status: Acute Category: Medical Code(s): Z72.0 - Tobacco use (7) Hypertension Current visit: Yes Status: Acute Category: Medical Code(s): I10 - Essential (primary) hypertension (8) Tachycardia Current visit: Yes Status: Acute Category: Medical Code(s): R00.0 - Tachycardia, unspecified
--- NOTE | 2018-06-29 14:36 | H&P/Discharge Summary ---
General - General Admission date:: 06/28/18 Discharge date: 06/29/18 *Admission Date: 06/28/18 *Chief complaint: chest pain *History of present illness: 62-year-old male presented to the ER for chest pain. Patient states starts mid chest with radiation to the back with associated nausea and vomiting. Patient reports history of chronic alcohol intake. hx of leukemia patient admitted for cardiology consult for evaluation and recommendations. Today patient denies any chest pain. [facility] History I have reviewed the patient's past medical history: Yes Medical History: Reports:: Cancer, Migraine, Myocardial Infarction, Pulmonary Embolism, Seizures Denies:: Diabetes Mellitus Type 1, Diabetes Mellitus Type 2, Hypertension, Internal Pacemaker, MRSA Have you ever received a pneumonia vaccine?: No Have you received a flu vaccine this season?: No Other Medical History: Reports: Chemotherapy Laterality Cases: Left: Arthroscopy Knee Other Surgeries: Yes: Colon Resection, Other. No: Pacemaker Amputation: No Fractures: Yes (clavicle, back in 3 places) - *Social History Smoking Status: Current every day smoker Tobacco Type: cigarettes # Packs/Day (cigarettes): 2 Alcohol Intake: current Alcohol Intake Frequency:: 0-2 drinks per day Substance Use Type: denies use Occupational Status: disabled Housing: house Household Members: none Travel in the last 8 weeks: None - Psychiatric History Expresses thoughts of harming self/others: None Suicide Plan Description: No Plan Family Hx:: Kidney Disease, Diabetes, Heart Attack Review of Systems - Review of Systems Review of systems:: pertinent systems reviewed and negative unless documented below - Constitutional Denies body ache(s), Denies fever(s) - Eyes Denies change in vision - ENT Denies change in voice - *Cardiovascular Reports chest pain, Reports chest pain with activity, Denies fast heart rate - *Respiratory Denies chest congestion - *Gastrointestinal Denies abdominal pain, Denies change in bowel habits, Denies change in stools - *Genitourinary Denies difficulty urinating - *Musculoskeletal Denies neck pain - Integumentary/Breasts Denies rash - *Neurologic Denies headache(s), Denies seizure-like activity - Psychiatric Denies lack of enjoyment - Endocrine Denies increased thirst - Hematologic/Lymphatic Denies enlarged lymph nodes - Allergic/Immunologic Denies lip swelling Exam Vital signs and Labs for Last 24 Hours: Temp Pulse Resp BP Pulse Ox 98.5 F 92 H 18 164/97 H 100 06/29/18 08:00 06/29/18 13:00 06/29/18 13:00 06/29/18 13:00 06/29/18 13:00 Laboratory Results - last 24 hr 06/28/18 17:15: Troponin I < 0.02 06/28/18 20:22: Troponin I < 0.02 06/29/18 05:16: WBC 9.7, RBC 4.06 L, Hgb 12.0 L D, Hct 36.4 L, MCV 89.8, MCH 29.3, MCHC 32.6, RDW 17.3, Plt Count 111 L D, MPV 6.8 L, Neut % (Auto) 75.4, Lymph % (Auto) 16.9, Baker % (Auto) 5.9, Eos % (Auto) 1.1, Baso % (Auto) 0.6, Neut # (Auto) 7.3, Lymph # (Auto) 1.6, Baker # (Auto) 0.6, Eos # (Auto) 0.1, Baso # (Auto) 0.1 06/29/18 05:16: PT 11.5, INR 1.12 H 06/29/18 05:16: Sodium 141, Potassium 4.5, Chloride 104, Carbon Dioxide 29, Anion Gap 12.5, BUN 11, Creatinine 0.93, Estimated Creat Clear 62, Estimated GFR 82, Est GFR ( Amer) 99, Glucose 105 D, Calcium 7.8 L D, Magnesium 1.8, Triglycerides 295 H, Cholesterol 62 L, LDL Cholesterol -28 L, VLDL Cholesterol 59 H, HDL Cholesterol 31, Cholesterol/HDL Ratio 2.0 I & O for Last 24 hours: Intake & Output 06/27/18 06/28/18 06/29/18 06/30/18 11:59 11:59 11:59 11:59 Intake Total 1850 / 1850 357 / 357 Output Total 550 / 550 Balance 1300 / 1300 357 / 357 Weight 131 lb 129 lb - Constitutional no acute distress - *Routine HEENT Exam Head: Present: normocephalic Eye: Present: EOMI, PERRL ENT: Present: mucous membranes moist - *Routine Neck Exam Present: supple. Absent: lymphadenopathy - *Routine Respiratory Exam Present: CTA bilaterally - *Routine Cardiovascular Exam Present: RRR - *Routine Abdominal Exam Present: soft, normoactive bowel sounds. Absent: tenderness Hospital Course Hospital Course: heart cath__IMPRESSION: 1. Chronically occluded ostial dominant right coronary artery with good collateralization from the LAD circumflex artery 2. Left ventricular dilatation with reduced ejection fraction large regional wall motion abnormality 3. Normal left ventricular end-diastolic pressure 4. Moderate infrarenal abdominal aortic aneurysm PLAN: 1. Medical management for coronary artery disease 2. Beta blockers oleg inhibitors 3. Daily aspirin with high intensity statin with a goal LDL less than 55 4. Abdominal aortic ultrasound to better evaluate the size of the abdominal aortic aneurysm 5. Patient has serious alcohol problem and appears to be experiencing other delirium tremens or significant alcohol withdrawal. I would recommend giving patient in hospital alcohol in order to avoid delirium tremens echo-CONCLUSION: 1. Technically difficult study because of the patient's factor and poor acoustic windows 2. Mildly enlarged left atrium, dilated left ventricle, visually estimated ejection fraction 30-35% left ventricle is globally hypokinetic, diastolic parameters are inconclusive. 3. Enlarged aortic root and ascending aorta measuring 4.4 cm, aortic valve morphology is not well visualized, there is no aortic stenosis aortic insufficiency. 4. Mild mitral and tricuspid regurgitation 5. No significant pericardial effusion noted. Results Labs on day of discharge: Labs from last 24 hours 06/29/18 06/29/18 06/29/18 05:16 05:16 05:16 WBC 9.7 RBC 4.06 L Hgb 12.0 L D Hct 36.4 L MCV 89.8 MCH 29.3 MCHC 32.6 RDW 17.3 Plt Count 111 L D MPV 6.8 L Neut % (Auto) 75.4 Lymph % (Auto) 16.9 Baker % (Auto) 5.9 Eos % (Auto) 1.1 Baso % (Auto) 0.6 Neut # (Auto) 7.3 Lymph # (Auto) 1.6 Baker # (Auto) 0.6 Eos # (Auto) 0.1 Baso # (Auto) 0.1 PT 11.5 INR 1.12 H Sodium 141 Potassium 4.5 Chloride 104 Carbon Dioxide 29 Anion Gap 12.5 BUN 11 Creatinine 0.93 Estimated Creat Clear 62 Estimated GFR 82 Est GFR ( Amer) 99 Glucose 105 D Calcium 7.8 L D Magnesium 1.8 Troponin I Triglycerides 295 H Cholesterol 62 L LDL Cholesterol -28 L VLDL Cholesterol 59 H HDL Cholesterol 31 Cholesterol/HDL Ratio 2.0 06/28/18 06/28/18 20:22 17:15 WBC RBC Hgb Hct MCV MCH MCHC RDW Plt Count MPV Neut % (Auto) Lymph % (Auto) [place] % (Auto) Eos % (Auto) Baso % (Auto) Neut # (Auto) Lymph # (Auto) [place] # (Auto) Eos # (Auto) Baso # (Auto) PT INR Sodium Potassium Chloride Carbon Dioxide Anion Gap BUN Creatinine Estimated Creat Clear Estimated GFR Est GFR ( Amer) Glucose Calcium Magnesium Troponin I < 0.02 < 0.02 Triglycerides Cholesterol LDL Cholesterol VLDL Cholesterol HDL Cholesterol Cholesterol/HDL Ratio - Additional Comments Rounded with Dr. Nassar all orders per Cesario DS: Diagnosis - Discharge Diagnosis (1) Chest pain Status: Acute (2) CAD (coronary artery disease) Status: Acute (3) History of right coronary artery stent placement Status: Acute (4) Cardiomyopathy Status: Acute (5) Alcohol abuse Status: Acute (6) Tobacco abuse Status: Acute (7) Hypertension Status: Acute (8) Tachycardia Status: Acute Discharge Medications - Medications for Discharge Home Medication List at Discharge: No Action metoprolol succinate ER 25 mg tablet,extended release 24 hr 25 mg PO DAILY #30 tab aspirin 81 mg tablet,delayed release 81 mg PO DAILY #30 tab ondansetron HCl 4 mg tablet 4 mg PO TID PRN #30 tab PRN Reason: nausea and vomiting Cyclobenzaprine HCl [Cyclobenzaprine 10mg Tab] 10 mg PO TIDP PRN PRN Reason: MUSCLE SPASMS Imatinib Mesylate 400 mg PO DAILY Tamsulosin HCl [Flomax 0.4mg capsule] 0.4 mg PO HS Lisinopril [Lisinopril 5mg Tablet] 5 mg PO DAILY Atorvastatin Calcium [Lipitor 40mg Tablet] 40 mg PO HS Oxycodone HCl [Oxycodone (IR) 15mg Tab] 15 mg PO Q6H Amitriptyline HCl [Elavil 50mg tablet] 50 mg PO HS Potassium Chloride [Klor-con 20 mEq tablet] 10 meq PO DAILY Disposition Disposition: Home, Self-Care
== END 2018-06-29 15:45 | disposition home or self-care (01) ==
LOC: 2ND 11:38 → ER 11:38 → 2ND 14:48
PROVIDERS: ADMIT Emergency Medicine; ATTEND Emergency Medicine
CPT/HCPCS: 36415; 71010; 71045; 75625; 76770; 80048; 80061; 82550; 82553; 83735; 84484; 85025; 85610; 93005; 93306; 93458; 99284; G0378; J1644; J2405; Q9966